=== PATIENT | female | born 1985 | race Caucasian/White ===

== ENCOUNTER 2020-06-29 16:04 | Outpatient (REF) | payer OTHER, SELFPAY ==
--- NOTE | ~2020-06-29 | XR_ITS ---
EXAMINATION: XR CHEST CLINICAL INFORMATION: Shortness of breath COMPARISON: None TECHNIQUE: 2 views of the chest were obtained. FINDINGS: The lungs are clear. There is no airspace consolidation, vascular congestion, groundglass opacity, or effusion. No pneumothorax or pneumomediastinum. The heart is normal in size. The hilar and mediastinal contours are normal. There are mild degenerative changes thoracic spine. XR/XR chest 2V IMPRESSION: Unremarkable examination.
== END 2020-06-29 16:05 | disposition home or self-care (01) ==
LOC: HO.HMGCX 16:04
PROVIDERS: PCP Nurse Practitioner Family; Visit Provider Nurse Practitioner Family
DX: R06.02 Shortness of breath (principal)
CPT/HCPCS: 71046

== ENCOUNTER 2020-07-19 16:41 | Emergency (ER) | payer OTHER, SELFPAY ==
--- NOTE | 2020-07-19 | ECG_ITS ---
Test Reason : CHEST PAIN Blood Pressure : / mmHG Vent. Rate : 070 BPM Atrial Rate : 070 BPM P-R Int : 188 ms QRS Dur : 102 ms QT Int : 428 ms P-R-T Axes : 021 053 024 degrees QTc Int : 462 ms Normal sinus rhythm with sinus arrhythmia Nonspecific ST and T wave abnormality Borderline ECG When compared with ECG of 19-JUL-2020 17:54, No significant change was found Referred By: Giovanni Gordon Electronically Signed By:RAE SHEPHERD
--- NOTE | ~2020-07-19 | XR_ITS ---
EXAMINATION: XR CHEST CLINICAL INFORMATION: History of pneumonia and cough COMPARISON: 06/29/2020 TECHNIQUE: 2 views of the chest were obtained. FINDINGS: No significant abnormality is noted involving the heart, lungs, mediastinum, bony thorax or soft tissues. XR/XR chest 2V IMPRESSION: Unremarkable examination.
--- NOTE | 2020-07-19 07:40 | ECG_ITS ---
Test Reason : CP Blood Pressure : / mmHG Vent. Rate : 065 BPM Atrial Rate : 065 BPM P-R Int : 170 ms QRS Dur : 098 ms QT Int : 418 ms P-R-T Axes : 027 064 010 degrees QTc Int : 434 ms Normal sinus rhythm Nonspecific ST and T wave abnormality Borderline ECG No previous ECGs available Referred By: Giovanni Gordon Electronically Signed By:RAE SHEPHERD
[2020-07-19 17:42] VITALS: BP 138/78; PULSE 68; RESP 16; TEMP 36.8; O2SAT 100; BMI 33.3
[2020-07-19 20:00] VITALS: BP 119/74; PULSE 67; RESP 18; TEMP 36.5; O2SAT 100
--- NOTE | 2020-07-19 21:07 | ED_ITS ---
HPI - Chest Pain General Chief Complaint: Chest Pain Stated Complaint: CHEST PAIN Time Seen by Provider: 07/19/20 21:07 Source: patient Mode of arrival: ambulatory Limitations: no limitations History of Present Illness HPI narrative: Patient recently diagnosed with pneumonia 3 weeks ago treated with antibiotics for 5 days was feeling fine until 3 days ago started coughing again with diffuse chest discomfort. Feels short little short of breath no fever no chills no leg swelling patient has not received COVID vaccine. No other family member is sick also patient complaining of mild headache. 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 Medications Medication Instructions Recorded Confirmed nitrofurantoin 1 cap PO BID 06/29/20 monohydrate/macrocrystals 100 mg capsule sucralfate 1 gram tablet 1 g PO QID 06/29/20 Previous Rx's Medication Instructions Recorded omeprazole 20 mg capsule,delayed 20 mg PO DAILY 30 Days #30 cap 02/22/20 release buspirone 7.5 mg tablet 7.5 mg PO BID #60 tab 05/29/20 levothyroxine 50 mcg tablet 50 mcg PO QAM #30 tab 05/29/20 hydroxyzine HCl 25 mg tablet 25 mg PO Q8H PRN 30 Days #90 tab 06/02/20 doxycycline monohydrate 100 mg 100 mg PO BID 10 Days #20 cap 06/29/20 capsule Allergies Allergy/AdvReac Type Severity Reaction Status Date / Time gluten Allergy Anxiety Verified 07/19/20 17:48 Review of Systems Review of Systems: Constitutional : No Weight loss, No Fever, No Chills ENT/Mouth : No sore throat, No Rhinorrhea Eyes: No Eye Pain, No Swelling Cardiovascular : No Chest Pain, no palpitations Respiratory : dry Cough, No Sputum, + shortness of breath Gastrointestinal : no Nausea, No Vomiting, No Diarrhea, No abdominal Pain, no black stools Genitourinary : No Dysuria, No Urinary Frequency Musculoskeletal : No joint pain, No Myalgias, No Joint Swelling Skin : No Skin Lesions, No rash Neuro : No Weakness, No Numbness, No Dizziness, No Headache Psych : No Anxiety/Panic, No Depression Heme/Lymph: No Bruising, No Lymphadenopathy Endocrine : No Polyuria, No Polydipsia All other systems reviewed and are negative PMFSH Past Medical History Surgical History History of section Family History Family History Father Depression Anxiety Bipolar disorder ADD (attention deficit disorder) Sister Depression Son No problems noted. Daughter No problems noted. Social History Social History Alcohol intake: never Smoking Status: Current every day smoker Tobacco Type: E-Cigarette Use of substances other than those prescribed or required for medical reasons: No Advance Directives: No Advance Directives Information Provided: Yes Patient : No Physical Exam Vital Signs: Vital Signs: Last Vital Signs Temp 97.7 F 07/19/20 20:00 Pulse 67 07/19/20 22:00 Resp 15 07/19/20 22:00 BP 104/56 L 07/19/20 22:00 Pulse Ox 100 07/19/20 22:00 Body Mass Index 33.3 Appearance: Alert. Oriented X3. No acute distress. Eyes: PERRLA, No Nystagmus ENT: Pharynx normal. Oral Mucosa moist Neck: Normal inspection. Neck supple. CVS: Normal heart rate and rhythm. Pulses normal. Respiratory: No respiratory distress. Equal air entry bilateral, no wheezing/rales/rhonchi Abdomen: Soft and nontender. Bowel sounds are present, no mass palpable, no CVA tenderness Skin: Skin warm and dry. Normal skin color. Normal skin turgor. Extremities: No lower extremity edema. No calf tenderness Neuro: Oriented X 3. No motor deficit. No sensory deficit.No cerebellar signs , cranial nerves II-XII intact MDM - Chest Pain MDM Narrative Medical decision making narrative: Patient with upper respiratory symptoms with cough chest x-ray negative white counts normal COVID negative symptoms likely from bronchitis will discharge patient home patient just finished course of dox ycycline has some postnasal drip likely allergies patient D-dimer negative for PE has the hemoglobin of 10.4 which looks like chronic secondary to heavy menstruation. Patient advised to follow-up with her PCP Lab Data Attestation: I reviewed the patient's lab results. Result diagrams: 07/19/20 21:41 07/19/20 21:41 Labs: Lab Results 07/19/20 07/19/20 07/19/20 Range/Units 21:41 21:41 21:41 WBC 4.8 (4.8-10.8) X10*3/uL RBC 4.12 L (4.20-5.50) X10*6/uL Hgb 10.4 L (12.0-16.0) g/dl Hct 32.7 L (37-47) % MCV 79.4 L (80-98) fL MCH 25.2 L (27.0-33.0) pg MCHC 31.8 (31.0-35.0) g/dl RDW 13.8 (11.0-16.0) % Plt Count 285 (160-400) X10*3/uL MPV 10.3 (9.4-12.3) fL Immature Gran % (Auto) 0.2 (0.0-0.4) % Neut % (Auto) 43.5 L (45-73) % Lymph % (Auto) 47.6 H (20-40) % [place] % (Auto) 6.2 (2-11) % Eos % (Auto) 2.1 (0-4) % Baso % (Auto) 0.4 (0-2) % Lymph # (Auto) 2.3 (1.2-4.9) X10*3/uL [place] # (Auto) 0.3 (0.1-1.2) X10*3/uL Eos # (Auto) 0.1 (0.0-0.4) X10*3/uL Baso # (Auto) 0.0 (0.0-0.2) X10*3/uL Abs Immat Gran (auto) 0.01 (0.00-0.03) X10*3/uL Absolute Neuts (auto) 2.1 (2.0-8.3) X10*3/uL Absolute Nucleated RBC 0.000 (0.0-0.012) X10*3/uL Nucleated RBC % (auto) 0.0 (0.0-0.2) /100WBC D-Dimer < 200 NG/ML Sodium 137 (135-145) mmol/L Potassium 3.7 (3.3-5.1) mmol/L Chloride 103 (96-108) mmol/L Carbon Dioxide 26 (22-29) mmol/L Anion Gap 12 (12-20) BUN 11 (9-16) mg/dL Creatinine 0.71 (0.5-1.4) mg/dL Estim Creat Clear Calc 120.7 Estimated GFR > 60 Random Glucose 97 (60-115) mg/dL Calcium 8.8 (8.4-10.2) mg/dL Urine Color Urine Appearance Urine pH (5.0-8.0) Ur Specific [place] (1.005-1.025) Urine Protein (NEG-TRACE) MG/DL Urine Glucose (UA) (NEG) MG/DL Urine Ketones (NEG) MG/DL Urine Blood (NEG) Urine Nitrite (NEG) Ur Leukocyte Esterase (NEG) Urine RBC (0) /HPF Urine WBC (0-4) /HPF Ur Squamous Epith Cells /LPF Urine Bacteria /LPF Urine Mucus /LPF COVID-19 (ROSA ISELA) (Negative) COVID-19 Clin Com 07/19/20 07/19/20 Range/Units 21:41 21:52 WBC (4.8-10.8) X10*3/uL RBC (4.20-5.50) X10*6/uL Hgb (12.0-16.0) g/dl Hct (37-47) % MCV (80-98) fL MCH (27.0-33.0) pg MCHC (31.0-35.0) g/dl RDW (11.0-16.0) % Plt Count (160-400) X10*3/uL MPV (9.4-12.3) fL Immature Gran % (Auto) (0.0-0.4) % Neut % (Auto) (45-73) % Lymph % (Auto) (20-40) % [place] % (Auto) (2-11) % Eos % (Auto) (0-4) % Baso % (Auto) (0-2) % Lymph # (Auto) (1.2-4.9) X10*3/uL [place] # (Auto) (0.1-1.2) X10*3/uL Eos # (Auto) (0.0-0.4) X10*3/uL Baso # (Auto) (0.0-0.2) X10*3/uL Abs Immat Gran (auto) (0.00-0.03) X10*3/uL Absolute Neuts (auto) (2.0-8.3) X10*3/uL Absolute Nucleated RBC (0.0-0.012) X10*3/uL Nucleated RBC % (auto) (0.0-0.2) /100WBC D-Dimer NG/ML Sodium (135-145) mmol/L Potassium (3.3-5.1) mmol/L Chloride (96-108) mmol/L Carbon Dioxide (22-29) mmol/L Anion Gap (12-20) BUN (9-16) mg/dL Creatinine (0.5-1.4) mg/dL Estim Creat Clear Calc Estimated GFR Random Glucose (60-115) mg/dL Calcium (8.4-10.2) mg/dL Urine Color YELLOW Urine Appearance CLEAR Urine pH 5.5 (5.0-8.0) Ur Specific [place] >= 1.030 H (1.005-1.025) Urine Protein TRACE (NEG-TRACE) MG/DL Urine Glucose (UA) NEG (NEG) MG/DL Urine Ketones 15 (NEG) MG/DL Urine Blood 3+ H (NEG) Urine Nitrite NEG (NEG) Ur Leukocyte Esterase NEG (NEG) Urine RBC 15-29 H (0) /HPF Urine WBC 0 (0-4) /HPF Ur Squamous Epith Cells 1+ /LPF Urine Bacteria 1+ /LPF Urine Mucus 1+ /LPF COVID-19 (ROSA ISELA) Negative (Negative) COVID-19 Clin Com See Note Discharge Plan Discharge Clinical Impression: Acute bronchitis, viral Patient Disposition: Home, Self-Care Instructions: Acute Bronchitis (ED) Additional Instructions: Use cough drops [id number]. Follow with PCP if not better Prescriptions: No Action omeprazole 20 mg capsule,delayed release(DR/EC) 20 mg PO DAILY 30 Days Qty: 30 RF: 3 levothyroxine 50 mcg tablet 50 mcg PO QAM Qty: 30 RF: 2 buspirone 7.5 mg tablet 7.5 mg PO BID Qty: 60 RF: 2 hydroxyzine HCl 25 mg tablet 25 mg PO Q8H PRN (Reason: anxiety/itching) 30 Days Qty: 90 RF: 1 nitrofurantoin monohyd/m-cryst 100 mg capsule 1 cap PO BID RF: 0 sucralfate 1 gram tablet 1 g PO QID RF: 0 doxycycline monohydrate 100 mg capsule 100 mg PO BID 10 Days Qty: 20 RF: 0
[2020-07-19 21:44] LABS: MANUAL DIFF FLAG NO
[2020-07-19 21:47] LABS: Basophils Percent Auto 0.4 % (0-2); Eosinophils Absolute Auto 0.1 X10*3/uL (0.0-0.4); Eosinophils Percent Auto 2.1 % (0-4); Hematocrit 32.7 % (37-47); Hemoglobin 10.4 g/dl (12.0-16.0); Imm Gran Abs Auto 0.01 X10*3/uL (0.00-0.03); Imm Gran Pct Auto 0.2 % (0.0-0.4); Lymphocytes Absolute Auto 2.3 X10*3/uL (1.2-4.9); Lymphocytes Percent Auto 47.6 % (20-40); Mean Corpuscular HGB Conc 31.8 g/dl (31.0-35.0); Mean Corpuscular Hemoglobin 25.2 pg (27.0-33.0); Mean Corpuscular Volume 79.4 fL (80-98); Mean Platelet Volume 10.3 fL (9.4-12.3); Monocytes Absolute Auto 0.3 X10*3/uL (0.1-1.2); Monocytes Percent Auto 6.2 % (2-11); Neutrophils Absolute Auto 2.1 X10*3/uL (2.0-8.3); Neutrophils Percent Auto 43.5 % (45-73); Platelet Count 285 X10*3/uL (160-400); Red Blood Count 4.12 X10*6/uL (4.20-5.50); Red Cell Distribution Width 13.8 % (11.0-16.0); White Blood Count 4.8 X10*3/uL (4.8-10.8)
[2020-07-19 21:58] LABS: D Dimer < 200 NG/ML
[2020-07-19 22:00] VITALS: BP 104/56; PULSE 67; RESP 15; O2SAT 100
[2020-07-19 22:01] LABS: COVID-19 Test Negative (Negative); IDNOW Serial# 9DD0AD1C
[2020-07-19 22:07] LABS: Anion Gap 12 (12-20); Blood Urea Nitrogen 11 mg/dL (9-16); Calcium 8.8 mg/dL (8.4-10.2); Carbon Dioxide 26 mmol/L (22-29); Chloride 103 mmol/L (96-108); Creatinine Clr Calc Pharmacy 120.7; Estimated Glomerular Filt Rate > 60; Glucose Random 97 mg/dL (60-115); Potassium 3.7 mmol/L (3.3-5.1); Sodium 137 mmol/L (135-145)
[2020-07-19 22:07] LABS: Glucose Urine UA NEG (NEG); Leukocyte Esterase Urine NEG (NEG); Nitrite Urine NEG (NEG); PH 5.5 (5.0-8.0); Specific Gravity - Urine >= 1.030 (1.005-1.025); Urine Blood 3+ (NEG); Urine Ketones 15 MG/DL (NEG); Urine Protein TRACE MG/DL (NEG-TRACE)
[2020-07-19 22:08] LABS: Appearance Urine CLEAR; Color Urine YELLOW
[2020-07-19 22:14] LABS: Bacteria Urine 1+ /LPF; Mucus Urine 1+ /LPF; Squamous Epithelial Cell Urine 1+ /LPF; WBC Urine 0 /HPF (0-4)
== END 2020-07-19 23:16 | disposition home or self-care (01) ==
PROVIDERS: Emergency Provider Internal Medicine; PCP Nurse Practitioner Family
DX: J20.9 Acute bronchitis, unspecified (principal); R51.9 Headache, unspecified; Z20.822 Contact with and (suspected) exposure to COVID-19; F17.290 Nicotine dependence, other tobacco product, uncomplicated
CPT/HCPCS: 36415; 71046; 80048; 81001; 85025; 85379; 87635; 93005; 99283; 99285

== ENCOUNTER 2020-09-02 14:38 | Outpatient (REF) | payer OTHER, SELFPAY ==
--- NOTE | ~2020-09-02 | XR_ITS ---
EXAMINATION: XR CHEST CLINICAL INFORMATION: Shortness of breath. COMPARISON: 07/19/20. 06/29/20. TECHNIQUE: 2 views of the chest were obtained. FINDINGS: No significant abnormality is noted involving the heart, lungs, mediastinum or soft tissues. Mild multilevel spondylosis is evident in the thoracic spine. XR/XR chest 2V IMPRESSION: Unremarkable examination.
== END 2020-09-02 14:39 | disposition home or self-care (01) ==
LOC: HO.HMGCX 14:38
PROVIDERS: PCP Nurse Practitioner Family; Visit Provider Nurse Practitioner Family
DX: R07.89 Other chest pain (principal); R06.02 Shortness of breath; R05 Cough
CPT/HCPCS: 71046

== ENCOUNTER 2020-11-23 14:06 | Emergency (ER) | payer OTHER, SELFPAY ==
[2020-11-23 14:15] VITALS: BP 137/86; PULSE 74; RESP 16; TEMP 37.1; O2SAT 100; BMI 31.4
== END 2020-11-23 19:09 | disposition left against medical advice (07) ==
PROVIDERS: Emergency Provider Emergency Medicine; PCP Nurse Practitioner Family
DX: R42 Dizziness and giddiness (principal)
CPT/HCPCS: 99282; 99283

== ENCOUNTER 2020-12-05 09:14 | Outpatient (REF) | payer OTHER, SELFPAY ==
[2020-12-05 11:30] LABS: Appearance Urine CLOUDY; Color Urine RED; Glucose Urine UA NEG (NEG); Leukocyte Esterase Urine NEG (NEG); Nitrite Urine NEG (NEG); Specific Gravity - Urine >= 1.030 (1.005-1.025); UACC Culture Trigger NO; Urine Blood 3+ (NEG); Urine Ketones 5 MG/DL (NEG); Urine Protein 2+ MG/DL (NEG-TRACE)
[2020-12-05 11:36] LABS: MANUAL DIFF FLAG NO
[2020-12-05 11:46] LABS: Basophils Percent Auto 0.8 % (0-2); Eosinophils Percent Auto 0.8 % (0-4); Hematocrit 32.8 % (37-47); Hemoglobin 9.8 g/dl (12.0-16.0); Imm Gran Abs Auto 0.01 X10*3/uL (0.00-0.03); Imm Gran Pct Auto 0.3 % (0.0-0.4); Lymphocytes Absolute Auto 1.4 X10*3/uL (1.2-4.9); Lymphocytes Percent Auto 35.9 % (20-40); Mean Corpuscular HGB Conc 29.9 g/dl (31.0-35.0); Mean Corpuscular Hemoglobin 22.4 pg (27.0-33.0); Mean Corpuscular Volume 75.1 fL (80-98); Mean Platelet Volume 10.9 fL (9.4-12.3); Monocytes Absolute Auto 0.3 X10*3/uL (0.1-1.2); Monocytes Percent Auto 6.6 % (2-11); Neutrophils Absolute Auto 2.1 X10*3/uL (2.0-8.3); Neutrophils Percent Auto 55.6 % (45-73); Platelet Count 293 X10*3/uL (160-400); Red Blood Count 4.37 X10*6/uL (4.20-5.50); Red Cell Distribution Width 15.8 % (11.0-16.0); White Blood Count 3.8 X10*3/uL (4.8-10.8)
[2020-12-05 12:14] LABS: Alanine Aminotransferase 14 U/L (0-31); Alkaline Phosphatase 41 U/L (39-117); Anion Gap 10 (12-20); Aspartate Amino Transferase 16 U/L (5-31); Bilirubin Total 0.2 mg/dL (0.0-1.0); Blood Urea Nitrogen 14 mg/dL (9-16); Calcium 8.9 mg/dL (8.4-10.2); Carbon Dioxide 23 mmol/L (22-29); Chloride 108 mmol/L (96-108); Cholesterol 191 mg/dL; Estimated Glomerular Filt Rate > 60; Glucose Fasting 104 mg/dL (60-99); HDL Cholesterol 68 mg/dL; LDL Cholesterol Calculated 111 mg/dl; Potassium 4.3 mmol/L (3.3-5.1); Sodium 137 mmol/L (135-145); Total Protein 6.9 g/dL (6.5-8.0); Triglycerides 63 mg/dL
[2020-12-05 12:19] LABS: RBC Urine TNTC /HPF (0)
[2020-12-05 12:20] LABS: Bacteria Urine TRACE /LPF; Squamous Epithelial Cell Urine 1+ /LPF; WBC Urine 0-2 /HPF (0-4)
[2020-12-05 12:21] LABS: Amorphous Sediment Urine 2+ /LPF; Calcium Oxalate Crystals Urine 1+ /LPF
== END 2020-12-05 09:15 | disposition home or self-care (01) ==
LOC: HO.HMGCLDS 09:14
PROVIDERS: PCP Nurse Practitioner Family; Visit Provider Nurse Practitioner Family
DX: Z00.00 Encounter for general adult medical examination without abnormal findings (principal); E03.9 Hypothyroidism, unspecified
CPT/HCPCS: 36415; 80053; 80061; 81001; 84443; 85025

== ENCOUNTER 2020-12-11 | Outpatient (REF) | payer OTHER, SELFPAY ==
[2020-12-12 08:36] LABS: FIT Int Ctl YES; FIT1 NEGATIVE (NEGATIVE); FIT2 NEGATIVE (NEGATIVE)
== END 2020-12-11 00:01 | disposition home or self-care (01) ==
LOC: HO.HMGCLNP
PROVIDERS: Visit Provider Nurse Practitioner Family
DX: D64.9 Anemia, unspecified (principal)
CPT/HCPCS: 82274

== ENCOUNTER 2021-01-17 13:43 | Outpatient (REF) | payer OTHER, SELFPAY ==
[2021-01-17 16:45] LABS: MANUAL DIFF FLAG NO
[2021-01-17 16:49] LABS: Basophils Percent Auto 0.8 % (0-2); Eosinophils Percent Auto 0.6 % (0-4); Hemoglobin 10.2 g/dl (12.0-16.0); Imm Gran Abs Auto 0.01 X10*3/uL (0.00-0.03); Imm Gran Pct Auto 0.2 % (0.0-0.4); Lymphocytes Absolute Auto 2.1 X10*3/uL (1.2-4.9); Lymphocytes Percent Auto 43.6 % (20-40); Mean Corpuscular HGB Conc 30.9 g/dl (31.0-35.0); Mean Corpuscular Hemoglobin 23.5 pg (27.0-33.0); Mean Platelet Volume 10.7 fL (9.4-12.3); Monocytes Absolute Auto 0.4 X10*3/uL (0.1-1.2); Monocytes Percent Auto 8.3 % (2-11); Neutrophils Absolute Auto 2.19 x10*3/uL (2.0-8.3); Neutrophils Percent Auto 46.5 % (45-73); Platelet Count 297 X10*3/uL (160-400); Red Blood Count 4.34 X10*6/uL (4.20-5.50); Red Cell Distribution Width 17.3 % (11.0-16.0); White Blood Count 4.7 X10*3/uL (4.8-10.8)
[2021-01-17 16:58] LABS: Appearance Urine CLEAR; Color Urine YELLOW; Glucose Urine UA NEG (NEG); Leukocyte Esterase Urine NEG (NEG); Nitrite Urine NEG (NEG); PH 5.5 (5.0-8.0); Specific Gravity - Urine >= 1.030 (1.005-1.025); Urine Blood NEG (NEG); Urine Ketones NEG (NEG); Urine Protein NEG (NEG-TRACE)
[2021-01-17 17:23] LABS: Vitamin D 25-OH Total 20.5 ng/mL (>30)
== END 2021-01-17 13:44 | disposition home or self-care (01) ==
LOC: HO.HMGCLDS 13:43
PROVIDERS: Visit Provider Nurse Practitioner Family
DX: Z00.00 Encounter for general adult medical examination without abnormal findings (principal); D64.9 Anemia, unspecified; E55.9 Vitamin D deficiency, unspecified
CPT/HCPCS: 36415; 81003; 82306; 84443; 85025

== ENCOUNTER 2021-01-30 09:43 | Outpatient (REF) | payer OTHER, SELFPAY ==
--- NOTE | ~2021-01-30 | XR_ITS ---
EXAMINATION: XR CHEST CLINICAL INFORMATION: Cough. COMPARISON: None TECHNIQUE: 2 views of the chest were obtained. FINDINGS: No significant abnormality is noted involving the heart, lungs, mediastinum, bony thorax or soft tissues. XR/XR chest 2V IMPRESSION: Unremarkable chest exam.
== END 2021-01-30 09:44 | disposition home or self-care (01) ==
LOC: HO.HMGCX 09:43
PROVIDERS: PCP Nurse Practitioner Family; Visit Provider Nurse Practitioner Family
DX: R07.89 Other chest pain (principal); R05.9 Cough, unspecified
CPT/HCPCS: 71046

== ENCOUNTER 2021-04-03 09:24 | Outpatient (REF) | payer OTHER, SELFPAY ==
[2021-04-03 11:26] LABS: MANUAL DIFF FLAG NO
[2021-04-03 11:29] LABS: Basophils Percent Auto 0.2 % (0-2); Eosinophils Percent Auto 0.7 % (0-4); Hematocrit 33.4 % (37.0-47.0); Hemoglobin 10.3 g/dl (12.0-16.0); Imm Gran Abs Auto 0.01 X10*3/uL (0.00-0.03); Imm Gran Pct Auto 0.2 % (0.0-0.4); Lymphocytes Absolute Auto 1.4 X10*3/uL (1.2-4.9); Lymphocytes Percent Auto 35.2 % (20-40); Mean Corpuscular HGB Conc 30.8 g/dl (31.0-35.0); Mean Corpuscular Hemoglobin 24.3 pg (27.0-33.0); Mean Platelet Volume 10.8 fL (9.4-12.3); Monocytes Absolute Auto 0.2 X10*3/uL (0.1-1.2); Monocytes Percent Auto 5.2 % (2-11); Neutrophils Absolute Auto 2.4 x10*3/uL (2.0-8.3); Neutrophils Percent Auto 58.5 % (45-73); Platelet Count 273 X10*3/uL (160-400); Red Blood Count 4.23 X10*6/uL (4.20-5.50)
[2021-04-03 12:15] LABS: Alanine Aminotransferase 11 U/L (0-31); Alkaline Phosphatase 48 U/L (39-117); Anion Gap 12 (12-20); Aspartate Amino Transferase 16 U/L (5-31); Bilirubin Total 0.3 mg/dL (0.0-1.0); Blood Urea Nitrogen 12 mg/dL (9-16); Calcium 9.1 mg/dL (8.4-10.2); Carbon Dioxide 25 mmol/L (22-29); Chloride 107 mmol/L (96-108); Estimated Glomerular Filt Rate > 60; Glucose Fasting 93 mg/dL (60-99); Potassium 4.5 mmol/L (3.3-5.1); Sodium 139 mmol/L (135-145); TSH reflex Free T4 4.67 uIU/mL (0.32-4.0); Total Protein 7.2 g/dL (6.5-8.0)
[2021-04-03 12:59] LABS: Free T4 (Free Thyroxine) 0.97 ng/dL (0.71-1.85)
== END 2021-04-03 09:25 | disposition home or self-care (01) ==
LOC: HO.HMGCLDS 09:24
PROVIDERS: Visit Provider Nurse Practitioner Family
DX: R07.89 Other chest pain (principal); R05.9 Cough, unspecified; R06.02 Shortness of breath
CPT/HCPCS: 36415; 80053; 84439; 84443; 85025

== ENCOUNTER 2021-04-06 08:12 | Outpatient (REF) | payer OTHER, SELFPAY ==
--- NOTE | 2021-04-06 | PFT_ITS ---
FLOWS: FEV1 125% of predicted at 3.94 L. FVC 114% of predicted at 4.41 L. FEV1 to FVC ratio of 0.89. No bronchodilator response. LUNG VOLUMES: Total lung capacity 96% of predicted at 5.04 L. Residual volume 41% of predicted at 0.67 L. Slow vital capacity 121% of predicted at 4.37 L. Expiratory reserve volume 140% of predicted at 1.82 L. Diffusion capacity is mildly decreased. IMPRESSION: No obstructive or restrictive ventilatory defect. No bronchodilator response. Decreased diffusion capacity suggests emphysema. Darien Ritchie MD AP/MODL / [id number]
== END 2021-04-06 08:13 | disposition home or self-care (01) ==
LOC: HO.RESP 08:12
PROVIDERS: PCP Nurse Practitioner Family; Visit Provider Nurse Practitioner Family
DX: R06.02 Shortness of breath (principal); R05.9 Cough, unspecified
CPT/HCPCS: 94060; 94727; 94729

== ENCOUNTER 2021-05-02 08:58 | Outpatient (REF) | payer OTHER, SELFPAY ==
[2021-05-02 11:34] LABS: MANUAL DIFF FLAG NO
[2021-05-02 11:43] LABS: Basophils Percent Auto 0.8 % (0-2); Eosinophils Percent Auto 0.8 % (0-4); Hemoglobin 11.6 g/dl (12.0-16.0); Imm Gran Abs Auto 0.01 X10*3/uL (0.00-0.03); Imm Gran Pct Auto 0.3 % (0.0-0.4); Lymphocytes Absolute Auto 1.5 X10*3/uL (1.2-4.9); Lymphocytes Percent Auto 38.7 % (20-40); Mean Corpuscular HGB Conc 31.4 g/dl (31.0-35.0); Mean Corpuscular Hemoglobin 25.4 pg (27.0-33.0); Mean Platelet Volume 11.1 fL (9.4-12.3); Monocytes Absolute Auto 0.3 X10*3/uL (0.1-1.2); Monocytes Percent Auto 6.3 % (2-11); Neutrophils Absolute Auto 2.1 x10*3/uL (2.0-8.3); Neutrophils Percent Auto 53.1 % (45-73); Platelet Count 314 X10*3/uL (160-400); Red Blood Count 4.57 X10*6/uL (4.20-5.50); Red Cell Distribution Width 17.4 % (11.0-16.0)
[2021-05-04 13:47] LABS: Alpha 1 Anti-trypsin 119 mg/dL (83-199)
== END 2021-05-02 08:59 | disposition home or self-care (01) ==
LOC: HO.HMGCLDS 08:58
PROVIDERS: PCP Nurse Practitioner Family; Visit Provider Nurse Practitioner Family
DX: D64.9 Anemia, unspecified (principal); R94.2 Abnormal results of pulmonary function studies
CPT/HCPCS: 36415; 82103; 85025

== ENCOUNTER 2021-05-10 12:48 | Outpatient (REF) | payer OTHER, SELFPAY ==
--- NOTE | ~2021-05-10 | CT_ITS ---
EXAMINATION: CT CHEST WITHOUT CONTRAST CLINICAL INFORMATION: Emphysema. Abnormal results of pulmonary function test. COMPARISON: Previous chest x-ray most recent 01/30/2021. TECHNIQUE: Multidetector volumetric CT imaging of the chest was done. Axial MIP volume rendering provided. Sagittal and coronal reformatted images were obtained. This CT examination was performed using dose optimization techniques as appropriate, variously including the following: *Automated exposure control. *Adjustment of mA and/or kV according to patient size (this includes techniques or standardized protocols for targeted exams where dose is matched to indication/reason for exam; i.e. extremities or head). *Use of iterative reconstruction technique. 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 LUNGS: There is a 2 mm peripheral or subpleural probably calcified right upper lobe nodule axial image 71 series 11. There is a 2 mm calcified left upper lobe nodule axial image 71 series 11. The lungs are otherwise clear. No evidence of emphysema, interstitial lung disease or bronchiectasis is seen. No endobronchial or endotracheal lesion is seen. MEDIASTINUM: The mediastinum is normal. PLEURA: There is no pleural effusion. No pleural mass or thickening. AXILLA: No lymphadenopathy. UPPER ABDOMEN: Unremarkable. OSSEOUS STRUCTURES: Degenerative changes. CT/CT chest wo con IMPRESSION: Small calcified pulmonary nodules. According to the UPDATED 2017 Fleischner Society recommendations, the advised follow-up imaging for less than 6 mm nodule: Low risk, no chest CT follow-up high-risk, optional chest CT follow-up in one year. Fleischner guidelines were followed.
== END 2021-05-10 12:49 | disposition home or self-care (01) ==
LOC: HO.CT 12:48
PROVIDERS: PCP Nurse Practitioner Family; Visit Provider Nurse Practitioner Family
DX: J43.9 Emphysema, unspecified (principal); R94.2 Abnormal results of pulmonary function studies
CPT/HCPCS: 71250

== ENCOUNTER 2021-10-12 08:38 | Outpatient (REF) | payer OTHER, SELFPAY ==
[2021-10-12 11:08] LABS: MANUAL DIFF FLAG NO
[2021-10-12 11:17] LABS: Basophils Percent Auto 0.6 % (0-2); Eosinophils Percent Auto 0.6 % (0-4); Hematocrit 34.4 % (37.0-47.0); Imm Gran Abs Auto 0.01 X10*3/uL (0.00-0.03); Imm Gran Pct Auto 0.3 % (0.0-0.4); Lymphocytes Absolute Auto 1.3 X10*3/uL (1.2-4.9); Lymphocytes Percent Auto 37.8 % (20-40); Mean Corpuscular Hemoglobin 25.2 pg (27.0-33.0); Mean Corpuscular Volume 78.9 fL (80.0-98.0); Mean Platelet Volume 11.3 fL (9.4-12.3); Monocytes Absolute Auto 0.3 X10*3/uL (0.1-1.2); Monocytes Percent Auto 9.5 % (2-11); Neutrophils Absolute Auto 1.8 x10*3/uL (2.0-8.3); Neutrophils Percent Auto 51.2 % (45-73); Platelet Count 259 X10*3/uL (160-400); Red Blood Count 4.36 X10*6/uL (4.20-5.50); White Blood Count 3.5 X10*3/uL (4.8-10.8)
[2021-10-12 11:24] LABS: Appearance Urine CLEAR; Color Urine YELLOW; Glucose Urine UA NEG (NEG); Leukocyte Esterase Urine NEG (NEG); Nitrite Urine NEG (NEG); Specific Gravity - Urine 1.025 (1.005-1.025); Urine Blood NEG (NEG); Urine Ketones NEG (NEG); Urine Protein NEG (NEG-TRACE)
[2021-10-12 11:43] LABS: Alanine Aminotransferase 10 U/L (0-31); Albumin Level 4.3 g/dL (3.5-5.0); Alkaline Phosphatase 31 U/L (39-117); Anion Gap 13 (12-20); Aspartate Amino Transferase 13 U/L (5-31); Bilirubin Total 0.3 mg/dL (0.0-1.0); Blood Urea Nitrogen 20 mg/dL (9-16); Calcium 9.1 mg/dL (8.4-10.2); Carbon Dioxide 22 mmol/L (22-29); Chloride 107 mmol/L (96-108); Cholesterol 167 mg/dL; Estimated Glomerular Filt Rate > 60; Glucose Fasting 99 mg/dL (60-99); HDL Cholesterol 58 mg/dL; LDL Cholesterol Calculated 99 mg/dl; Potassium 4.4 mmol/L (3.3-5.1); Sodium 138 mmol/L (135-145); Total Protein 7.5 g/dL (6.5-8.0); Triglycerides 51 mg/dL
[2021-10-12 12:04] LABS: TSH reflex Free T4 4.22 uIU/mL (0.32-4.0)
[2021-10-12 13:06] LABS: Free T4 (Free Thyroxine) 1.08 ng/dL (0.71-1.85)
== END 2021-10-12 08:39 | disposition home or self-care (01) ==
LOC: HO.HMGCLDS 08:38
PROVIDERS: Visit Provider Nurse Practitioner Family
DX: J06.9 Acute upper respiratory infection, unspecified (principal)
CPT/HCPCS: 36415; 80053; 80061; 81003; 84439; 84443; 85025

== ENCOUNTER 2022-01-29 09:57 | Outpatient (REF) | payer OTHER, SELFPAY ==
--- NOTE | ~2022-01-29 | XR_ITS ---
EXAMINATION: XR CHEST CLINICAL INFORMATION: Acute bronchitis COMPARISON: Previous chest x-ray and chest CT January 2021 TECHNIQUE: 2 views of the chest were obtained. FINDINGS: No significant abnormality is noted involving the heart, lungs, mediastinum, bony thorax or soft tissues. There are mild degenerative changes of the spine. XR/XR chest 2V IMPRESSION: No evidence for acute disease in the chest.
[2022-01-29 13:43] LABS: Influenza A PCR NEGATIVE (Negative); Influenza B PCR NEGATIVE (Negative); Resp Syncy Virus RNA Qual PCR NEGATIVE (Negative); SARS COV2 PCR INHOUSE NEGATIVE (Negative)
== END 2022-01-29 09:58 | disposition home or self-care (01) ==
LOC: HO.HMGCX 09:57
PROVIDERS: PCP Nurse Practitioner Family; Visit Provider Internal Medicine
DX: J20.9 Acute bronchitis, unspecified (principal); R43.9 Unspecified disturbances of smell and taste; Z20.822 Contact with and (suspected) exposure to COVID-19
CPT/HCPCS: 0241U; 71046

== ENCOUNTER 2022-09-25 11:00 | Outpatient (AMB) | payer OTHER, SELFPAY ==
[2022-09-25 11:05] VITALS: BP 110/70; PULSE 79; O2SAT 99; BMI 26.9
--- NOTE | 2022-09-25 11:05 | A.OFFPC_ITS ---
Vital Signs 09/25/22 11:05 Height 5 ft 5 in Weight 161 lb 6 oz BMI 26.9 BP 110/70 Blood Pressure Location Rt brachial Position Sitting Pulse 79 Pulse Source Pulse Oximeter Pulse Oximetry (%) 99 Oxygen Delivery Method Room Air Intake Visit Reasons: PHY Allergies gluten Allergy (Verified 09/25/22 11:08) Anxiety Tobacco use date assessed: 09/25/22 Dental Screening Dental Screen Date: 09/25/22 Did you have a dental visit in the last 12 months?: Yes Did you have a dental problem in the last 6 months where you did not have access to dental care?: No Was dental information given to patient?: Patient has dentist HPI PHY HPI Details Pt is here for a PE. Will order labs. 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 Pt is very fair-skinned with multiple freckles. Will refer to derm. Pt does have a hoarse voice. [facility] Medical History Dizziness Surgical History History of section Family History Father Depression Anxiety Bipolar disorder ADD (attention deficit disorder) Sister Depression Son No problems noted. Daughter No problems noted. Other Mental health disorder Social History Housing: House Alcohol intake: never Patient Tobacco Use Status: Former Tobacco user e-Cigarette/Vaping Use: Never Used Second Hand Smoke Exposure: No Current occupational status: employed Cognitive needs: No Hearing needs: No Vision needs: No Questionnaire Thrive Questionnaire Date Thrive assessed: 09/14/20 Review of Systems Const Denies chills and Denies fever(s) Eyes Denies blurry vision ENT Denies vertigo, Denies dizziness and Denies sore throat Card Denies chest pain at rest, Denies chest pain with activity, Denies diaphoresis, Denies dyspnea and Denies dyspnea on exertion Resp Denies cough, Denies dyspnea, Denies dyspnea on exertion and Denies wheezing GI Denies abdominal pain, Denies melena, Denies hematochezia, Denies constipation, Denies diarrhea and Denies loose stools Denies hematuria Musc Denies numbness and Denies tingling Skin/Breast Denies lesions Neuro Denies vertigo, Denies dizziness, Denies numbness and Denies tingling Psych Denies anxiety, Denies depression, Denies homicidal ideation, Denies suicidal ideation and Denies other (substance abuse) Aller/Immun Denies wheezing Physical exam (Primary Care) Vital Signs: Last Vital Signs Pulse 79 09/25/22 11:05 BP 110/70 09/25/22 11:05 Pulse Ox 99 09/25/22 11:05 Oxygen Delivery Method Room Air 09/25/22 11:05 BMI result Body Mass Index 26.9 Tobacco/Smoking Status: Tobacco use Status Tobacco use date assessed 09/25/22 09/25/22 11:11 Patient Tobacco Use Status Former Tobacco user 09/25/22 11:06 e-Cigarette/Vaping Use Never Used 09/25/22 11:06 Thrive Assessment: Date of Thrive Assessment Date Thrive assessed 09/14/20 09/25/22 11:06 Const General: cooperative Nutritional Appearance: well nourished Orientation/consciousness: patient oriented x3 HENMT Other: cervical nodes palpable, indurated, no signs of postpharyngeal abscess Head: Yes normal to inspection, Yes normocephalic and Yes atraumatic Ears: TM's normal bilaterally Eyes General: appearance normal, both eyes and all related structures Alignment and Position: alignment normal and position normal Neck Neck: Yes normal visual inspection and Yes no lymphadenopathy Thyroid: Thyroid normal Resp Effort & Inspection: normal respiratory effort Auscultation: clear to auscultation bilaterally Cardio Rate: regular rate Rhythm: regular rhythm Heart sounds: S1 normal heart sound present, S2 normal heart sound present and Murmur heart sound present systolic GI Palpation (GI): Soft to palpation and nontender Auscultation: normal bowel sounds Skin Rashes: no rashes Neuro General: patient oriented x3, moves all extremities, no focal motor deficits and deep tendon reflexes 2+ bilaterally Romberg Test: Negative Psych Appearance: grossly normal Mental Status: mental status grossly normal Speech and movement: Normal speech and movement present Affect: normal affect Attitude: cooperative Thought process: Normal thought process present Thought content: Normal thought content present Insight: Good insight present (Psych) Judgement: Good judgement present (Psych) Assessment and Plan Assessment & Plan (1) Physical exam: Code(s): Z00.00 - Encounter for general adult medical examination without abnormal findings (2) Skin lesions: Code(s): L98.9 - Disorder of the skin and subcutaneous tissue, unspecified (3) Hoarse voice quality: Code(s): R49.0 - Dysphonia Plan The patient agreed to the use of a medical logistics specialist for this encounter. Scribed for SOPHIE Pizarro by Dinora Layton medical logistics specialist, on 09/25/2022 at 11:20 EST. Orders: Orders Comprehensive Independence. Panel Fast Today Z00.00 - Encounter for general adult medical examination without abnormal findings Lipid Panel Today Z00.00 - Encounter for general adult medical examination without abnormal findings TSH reflex Free T4 Today Z00.00 - Encounter for general adult medical examination without abnormal findings Complete Blood Count Auto Diff Today Z00.00 - Encounter for general adult medical examination without abnormal findings UA CC w/rflx Micro + Cult Today Z00.00 - Encounter for general adult medical examination without abnormal findings US soft tiss head and/or neck Today R49.0 - Dysphonia Referrals Dermatology Referral L98.9 - Disorder of the skin and subcutaneous tissue, unspecified Coding Level of Care Code Est Pt Prev Care 18-39y([id number]) Diagnoses Physical exam Z00.00 Skin lesions L98.9 Hoarse voice quality R49.0
== END 2022-09-25 12:17 | disposition home or self-care (01) ==
PROVIDERS: Visit Provider Nurse Practitioner Family
DX: Z00.00 Encounter for general adult medical examination without abnormal findings (principal); L98.9 Disorder of the skin and subcutaneous tissue, unspecified; R49.0 Dysphonia
CPT/HCPCS: 99395

== ENCOUNTER 2022-12-27 09:08 | Outpatient (REF) | payer OTHER, SELFPAY ==
[2022-12-27 11:46] LABS: Appearance Urine Clear; Color Urine Yellow; Glucose Urine UA Negative (Negative); Leukocyte Esterase Urine Negative (Negative); Nitrite Urine Negative (Negative); PH 5.5 (5.0-9.0); Specific Gravity - Urine 1.025 (1.005-1.025); UMIC TRIGGER UACC YES; Urine Blood Moderate (2+) (Negative); Urine Ketones Negative (Negative); Urine Protein Negative (Neg-Trace)
[2022-12-27 11:51] LABS: Bacteria Urine None Seen (None Seen); Hyaline Casts Urine 0-2 /LPF (0-2); RBC Urine >20 /HPF (0-2); Squamous Epithelial Cell Urine 0-2 /HPF (0-2); WBC Urine 0-5 /HPF (0-5)
[2022-12-27 11:54] LABS: MANUAL DIFF FLAG NO
[2022-12-27 12:00] LABS: Basophils Percent Auto 1.4 % (0-2); Eosinophils Percent Auto 0.7 % (0-4); Hematocrit 34.5 % (37.0-47.0); Hemoglobin 10.9 g/dl (12.0-16.0); Lymphocytes Absolute Auto 1.3 X10*3/uL (1.2-4.9); Lymphocytes Percent Auto 46.8 % (20-40); Mean Corpuscular HGB Conc 31.6 g/dl (31.0-35.0); Mean Corpuscular Volume 79.1 fL (80.0-98.0); Mean Platelet Volume 10.9 fL (9.4-12.3); Monocytes Absolute Auto 0.2 X10*3/uL (0.1-1.2); Monocytes Percent Auto 7.6 % (2-11); Neutrophils Absolute Auto 1.2 x10*3/uL (2.0-8.3); Neutrophils Percent Auto 43.5 % (45-73); Platelet Count 311 X10*3/uL (160-400); Red Blood Count 4.36 X10*6/uL (4.20-5.50); Red Cell Distribution Width 14.9 % (11.0-16.0); White Blood Count 2.8 X10*3/uL (4.8-10.8)
[2022-12-27 13:07] LABS: Alanine Aminotransferase 9 U/L (0-31); Albumin Level 4.1 g/dL (3.5-5.0); Alkaline Phosphatase 37 U/L (39-117); Anion Gap 13 (12-20); Aspartate Amino Transferase 15 U/L (5-31); Bilirubin Total 0.2 mg/dL (0.0-1.0); Blood Urea Nitrogen 16 mg/dL (9-16); Calcium 9.3 mg/dL (8.4-10.2); Carbon Dioxide 23 mmol/L (22-29); Chloride 106 mmol/L (96-108); Cholesterol 206 mg/dL (<200); Estimated Glomerular Filt Rate > 60; Glucose Fasting 96 mg/dL (60-99); HDL Cholesterol 75 mg/dL (>40); LDL Cholesterol Calculated 123 mg/dL (<100); Potassium 4.7 mmol/L (3.3-5.1); Sodium 137 mmol/L (135-145); Total Protein 7.5 g/dL (6.5-8.0); Triglycerides 41 mg/dL (<150)
[2022-12-27 13:13] LABS: TSH reflex Free T4 1.87 uIU/mL (0.32-4.0)
== END 2022-12-27 09:09 | disposition home or self-care (01) ==
LOC: HO.HMGCLDS 09:08
PROVIDERS: PCP Nurse Practitioner Family; Visit Provider Nurse Practitioner Family
DX: Z00.00 Encounter for general adult medical examination without abnormal findings (principal)
CPT/HCPCS: 36415; 80053; 80061; 81001; 84443; 85025

== ENCOUNTER 2023-05-19 13:33 | Outpatient (REF) | payer OTHER, SELFPAY ==
[2023-05-19 16:03] LABS: MANUAL DIFF FLAG NO
[2023-05-19 16:14] LABS: Appearance Urine Clear; Color Urine Yellow; Glucose Urine UA Negative (Negative); Leukocyte Esterase Urine Negative (Negative); Nitrite Urine Negative (Negative); PH 5.5 (5.0-9.0); Urine Blood Negative (Negative); Urine Ketones Negative (Negative); Urine Protein Negative (Neg-Trace)
[2023-05-19 16:18] LABS: Basophils Percent Auto 0.9 % (0-2); Eosinophils Percent Auto 0.2 % (0-4); Hematocrit 35.8 % (37.0-47.0); Imm Gran Abs Auto 0.02 X10*3/uL (0.00-0.03); Imm Gran Pct Auto 0.4 % (0.0-0.4); Lymphocytes Absolute Auto 1.4 X10*3/uL (1.2-4.9); Lymphocytes Percent Auto 30.4 % (20-40); Mean Corpuscular HGB Conc 33.5 g/dl (31.0-35.0); Mean Corpuscular Hemoglobin 29.1 pg (27.0-33.0); Mean Corpuscular Volume 86.9 fL (80.0-98.0); Mean Platelet Volume 10.8 fL (9.4-12.3); Monocytes Absolute Auto 0.3 X10*3/uL (0.1-1.2); Monocytes Percent Auto 6.7 % (2-11); Neutrophils Absolute Auto 2.9 x10*3/uL (2.0-8.3); Neutrophils Percent Auto 61.4 % (45-73); Platelet Count 252 X10*3/uL (160-400); Red Blood Count 4.12 X10*6/uL (4.20-5.50); Red Cell Distribution Width 12.6 % (11.0-16.0); White Blood Count 4.6 X10*3/uL (4.8-10.8)
[2023-05-19 16:33] LABS: Iron 51 mcg/dL (30-160); Percent Iron Saturation 16 % (15-50); Total Iron Binding Capacity 318 mcg/dL (228-428); Unsaturated Iron Binding 267 ug/dL
[2023-05-19 16:49] LABS: Ferritin 24 ng/mL (10-122)
== END 2023-05-19 13:34 | disposition home or self-care (01) ==
LOC: HO.HMGCLDS 13:33
PROVIDERS: PCP Nurse Practitioner Family; Visit Provider Nurse Practitioner Family
DX: Z00.00 Encounter for general adult medical examination without abnormal findings (principal); D64.9 Anemia, unspecified; D72.819 Decreased white blood cell count, unspecified
CPT/HCPCS: 36415; 81003; 82728; 83540; 85025

== ENCOUNTER 2023-05-26 11:33 | Outpatient (AMB) | payer OTHER, SELFPAY ==
--- NOTE | 2023-05-26 11:35 | A.OFFPC_ITS ---
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 Required: No Accompanied by: Self / Same As Patient Allergies gluten Allergy (Verified 05/26/23 11:36) Anxiety Medication List - Last Reconciled 05/26/23 by SOPHIE Barragan albuterol sulfate 90 mcg/actuation (ProAir HFA) 2 puffs inhalation Q4-6H PRN buspirone 15 mg PO BID ferrous sulfate (Iron (ferrous sulfate)) 325 mg PO BID levothyroxine 50 mcg PO QAM lorazepam 0.5 mg PO DAILY PRN 30 days omeprazole 20 mg PO DAILY 30 days sucralfate 1 g PO QID Tobacco use date assessed: 05/26/23 Dental Screening Dental Screen Date: 05/26/23 Did you have a dental visit in the last 12 months?: Yes Did you have a dental problem in the last 6 months where you did not have access to dental care?: No Was dental information given to patient?: Patient has dentist HPI anemia and anxiety HPI Details Anxiety: Pt is currently taking buspirone 15mg bid. She reports recently witnessing a coworker have a grand mal seizure which was traumatic for her. She is interested in seeing a therapist, will have team speak with pt.Denies any SI and HI. Anemia: Pt is taking iron tabs. She reports doing well with this med, and H+H is climbing up. Denies fatigue, dizziness, CP, SOB, and blood in stool. Pt reports palpitations especially at night. Will order holter r/o any cardiac arrhythmia. Systolic murmur, last echo was 2018, will repeat. [facility] Medical History Dizziness Surgical History History of section Family History Father Depression Anxiety Bipolar disorder ADD (attention deficit disorder) Sister Depression Son No problems noted. Daughter No problems noted. Other Mental health disorder Social History Housing: House Alcohol intake: never Patient Tobacco Use Status: Former Tobacco user e-Cigarette/Vaping Use: Never Used Second Hand Smoke Exposure: No Current occupational status: employed Cognitive needs: No Hearing needs: No Vision needs: No Questionnaire Thrive Questionnaire Date Thrive assessed: 09/14/20 Review of Systems Const Reports as per [facility] Physical exam (Primary Care) Vital Signs: Last Vital Signs Pulse 66 05/26/23 11:36 BP 120/66 05/26/23 11:36 Pulse Ox 98 05/26/23 11:36 BMI result Body Mass Index 27.3 Tobacco/Smoking Status: Tobacco use Status Tobacco use date assessed 05/26/23 05/26/23 11:37 Patient Tobacco Use Status Former Tobacco user 05/26/23 11:37 e-Cigarette/Vaping Use Never Used 05/26/23 11:37 Thrive Assessment: Date of Thrive Assessment Date Thrive assessed 09/14/20 05/26/23 11:37 Const General: cooperative Orientation/consciousness: patient oriented x3 Resp Effort & Inspection: normal respiratory effort Auscultation: clear to auscultation bilaterally Cardio Rate: regular rate Rhythm: regular rhythm Heart sounds: S1 normal heart sound present, S2 normal heart sound present and Murmur heart sound present systolic Neuro General: patient oriented x3 Extrem Right lower extremity: no edema Left lower extremity: no edema Psych Appearance: grossly normal Mental Status: mental status grossly normal Speech and movement: Normal speech and movement present Affect: normal affect Attitude: cooperative Thought process: Normal thought process present Thought content: Normal thought content present Insight: Good insight present (Psych) Judgement: Good judgement present (Psych) Assessment and Plan Assessment & Plan (1) Systolic murmur: Code(s): R01.1 - Cardiac murmur, unspecified Plan: Echo ordered (2) Palpitations: Code(s): R00.2 - Palpitations Plan: Holter ordered, echo ordered for murmur (3) Anxiety: Code(s): F41.9 - Anxiety disorder, unspecified Plan: will have team speak with pt. pt is doing fair, saw a traumatic event, requesting therapist. denies any si or hi, continue current med regime (4) Depression: Code(s): F32.A - Depression, unspecified (5) Anemia: Code(s): D64.9 - Anemia, unspecified Plan The patient agreed to the use of a back office medical assistant for this encounter. Scribed for [facility] by Dinora Layton back office medical assistant, on 05/26/2023 at 11:50 EST. Orders: Orders CA echo transthoracic complete Today R01.1 - Cardiac murmur, unspecified ECG 3 day holter monitor Today R00.2 - Palpitations Complete Blood Count Auto Diff 6 Months Z00.00 - Encounter for general adult medical examination without abnormal findings TSH reflex Free T4 6 Months Z00.00 - Encounter for general adult medical examination without abnormal findings IRON PROFILE 6 Months D64.9 - Anemia, unspecified Vitamin B12 and Folate 6 Months D64.9 - Anemia, unspecified Comprehensive Humphrey. Panel Fast 6 Months Z00.00 - Encounter for general adult medical examination without abnormal findings UA CC w/rflx Micro + Cult 6 Months Z00.00 - Encounter for general adult medical examination without abnormal findings Lipid Panel 6 Months Z00.00 - Encounter for general adult medical examination without abnormal findings Ferritin 6 Months D64.9 - Anemia, unspecified Medications: Refilled levothyroxine 50 mcg PO QAM 90 tabs 1RF lorazepam 0.5 mg PO DAILY PRN 30 tabs 1RF anxiety 30 days Coding Level of Care Code Est Pt Level 3 (80948) Diagnoses Systolic murmur R01.1 Palpitations R00.2 Anxiety F41.9 Depression F32.A Anemia D64.9
[2023-05-26 11:36] VITALS: BP 120/66; PULSE 66; O2SAT 98; BMI 27.3
== END 2023-05-26 12:34 | disposition home or self-care (01) ==
PROVIDERS: PCP Nurse Practitioner Family; Visit Provider Nurse Practitioner Family
DX: R01.1 Cardiac murmur, unspecified (principal); R00.2 Palpitations; F41.9 Anxiety disorder, unspecified; F32.A Depression, unspecified; D64.9 Anemia, unspecified
CPT/HCPCS: 99213

== ENCOUNTER → 2023-06-18 14:09 | Outpatient (REF) | payer OTHER, SELFPAY ==
--- NOTE | 2023-06-18 14:12 | HM_ITS ---
* Total monitoring time 3 days. * Underlying rhythm is sinus with an average rate of 72/Min. * Rare ventricular ectopy with minimal burden. 2 short runs, longest 5 beats. * Rare supraventricular ectopy. * No significant pauses or AV blocks. * Patient markers used in association with sinus rhythm, sinus tachycardia, NSVT. * Chest discomfort, rapid/fast heartbeat in patient diary associated with sinus rhythm/artifact. MTDD
--- NOTE | 2023-06-18 14:12 | CA_ITS ---
Transthoracic Echocardiogram Patient (Last, First, Middle): Abigail Dudley, Gender: Female Date of : 1985 Age: 37 Procedure Date: 06/18/2023 Procedure Type: Transthoracic Echocardiogram Location: OP Height: 165.1 cm Weight: 74.39 kg BSA: 1.82 m2 Heart Rate: 66 bpm BP: 118 / 62 mmHg All Source Analyst: SB Referring MD: Gee Doyle [facility] Trimmer Climber: Fabio Hurst MD Symptoms: R01.1 - Cardiac murmur, unspecified Study Quality: Adequate ECG Rhythm: Sinus Conclusions: - Essentially normal study Findings Left Ventricle Normal left ventricular size, thickness, and systolic function. The visually estimated ejection fraction is between 60-65%. Diastolic function is normal for age. Right Ventricle Normal right ventricular cavity size and systolic function. Atria Both atria are normal in size. There is no evidence of interatrial shunt. Aortic Valve Normal aortic valve structure and function. There is no aortic valve stenosis. There is no aortic valve regurgitation. Mitral Valve Normal mitral valve structure and function. There is trace mitral valve regurgitation. There is no mitral valve stenosis. Pulmonic Valve The pulmonic valve is likely normal. Tricuspid Valve Normal tricuspid valve structure. There is trace tricuspid valve regurgitation. The right ventricular systolic pressure is normal. The right ventricular systolic pressure is 14 mmHg. Normal right atrial pressure. There is no evidence of pulmonary hypertension. Great Vessels All visible segments of the aorta are normal in size. The visualized portions of the pulmonary artery and branches are normal. Venous The inferior vena cava is normal in size and collapses greater than 50% with inspiration. Pericardium/Pleural There is no evidence of pericardial effusion. Prior Study Comparison No significant change compared to prior study dated: 11/18/2017. Measurements 2D Linear Measurements IVSd: 0.62 0.6-0.9/0.6-1.0 cm LVIDd: 4.89 3.9-5.3/4.2-5.9 cm LVIDd Index: 2.69 2.4-3.2/2.2-3.1 cm/m2 LVIDs: 3.22 2.0-3.6 cm LVPWd: 0.80 0.7-1.1 cm LA Diam: 3.50 2.7-3.8/3.0-4.0 cm LAIDs Index: 1.92 1.5-2.3 cm/m2 LV Mass: 139.68 67-162/88-224 g LV Mass Index: 76.75 43-95/49-115 g/m2 LVOT Diam: 2.10 3.0+(-)1.3 cm 2D Systolic Function EF 4C: 64.20 >55% EF 2C: 63.70 >55% EF BiP: 64.40 >55% Mitral Valve MV Pk E: 0.96 MV PK A: 0.66 MV Decel Time: 149.00 E/A: 1.40 E'Lateral: 10.80 E'Medial: 8.49 E/E' Med: 11.20 E/E' Lat: 8.80 PHT: 44.00 MVA PHT: 5.00 Decel [place]: 6.40 Aortic Valve AoV Pk Venancio: 1.24 AoV Pk Grad: 6.00 MATTI: 3.21 LVOT LVOT Pk Venancio: 1.15 LVOT Mn Venancio: 0.79 LVOT VTI: 0.23 LVOT Pk Grad: 5.00 LVOT Mn Grad: 3.00 LVOT Diam: 2.10 LVOT Area: 3.46 Diastolic Function MV Pk E: 0.96 MV Pk A: 0.66 E/A: 1.40 E'Medial: 8.49 E/E' Med: 11.20 E' Laterial: 10.80 E/E' Lat: 8.80 Right Ventricle TAPSE (mm): 25.40 TVS' Venancio: 13.40 Tricuspid Valve TR Pk Venancio: 1.66 TR Pk Grad: 11.00 RA Press: 3.00 RVSP: 14.00 Great Vessels Aorta Sinus of Valsalva: 2.90 2.0-3.5 cm Ao Asc: 3.10 2.1-3.4 cm Pulmonary Veins Pulm Vein S/D 1.20 Pulmonary Valve PV Pk Venancio: 0.92 Peak PV Grad: 3.00 Updated in Other Vendor System with Status of Final Fabio Hurst MD electronically signed on 06/19/2023 12:12:56 PM with status of Final
== END ==
LOC: HO.CARD 14:09
PROVIDERS: PCP Nurse Practitioner Family; Visit Provider Nurse Practitioner Family
DX: R00.2 Palpitations (principal); R01.1 Cardiac murmur, unspecified
CPT/HCPCS: 93242; 93306

== ENCOUNTER → 2023-06-18 14:12 | Outpatient (BNV) | payer OTHER, SELFPAY | PROVIDERS: PCP Nurse Practitioner Family; Visit Provider Internal Medicine Cardiovascular Disease | DX: I49.3 Ventricular premature depolarization (principal) | CPT/HCPCS: 93244; 93306 ==

== ENCOUNTER 2023-11-05 11:49 | Emergency (ER) | payer OTHER, SELFPAY ==
--- NOTE | ~2023-11-05 | US_ITS ---
EXAMINATION: US ABDOMEN LIMITED CLINICAL INFORMATION: Right upper quadrant pain after eating. COMPARISON: None available. TECHNIQUE: Real-time imaging of the right upper quadrant abdominal viscera. FINDINGS: PANCREAS: The head is slightly obscured but the tail and body of the pancreas appear normal. The pancreatic duct however does appear slightly conspicuous at 2 mm although I do not see an intrinsic calcification. LIVER: Normal. The liver is normal in size. The liver contour is normal. Parenchymal echogenicity is normal. No focal hepatic lesion. There is no intrahepatic biliary duct dilatation seen. GALLBLADDER: Specular reflectors are seen in the gallbladder wall but discrete gallstones are not seen. There may be a small element of sludge within the gallbladder when the patient was placed in the decubitus position. No evidence for gallbladder wall thickening or pericholecystic fluid. COMMON BILE DUCT: Normal in caliber measuring 0.6 cm in diameter. RIGHT KIDNEY: Normal. No hydronephrosis. No renal calculi or focal parenchymal lesions. The kidney measures 11.7 cm in maximum dimension. FREE FLUID: None. US/US abdomen limited IMPRESSION: Small amount of gallbladder sludge. No biliary dilatation. Increased conspicuity or prominence to the pancreatic duct is observed, likely not clinically significant. Given the patient's symptoms however, consideration could be given to HIDA scan. Electronically signed by: Venkatesh Roche MD 11/05/2023 05:21 PM EDT
[2023-11-05 12:12] VITALS: BP 146/78; PULSE 75; RESP 18; TEMP 36.8; O2SAT 100; BMI 26.8
--- NOTE | 2023-11-05 12:14 | ED.GENADULT ---
HPI - General Adult General Chief complaint: Abdominal Pain Stated complaint: abd pain Time Seen by Provider: 11/05/23 22:12 Source: patient Mode of arrival: ambulatory Limitations: no limitations History of Present Illness ED Provider: Dr. Araya HPI narrative: Patient with one month of intermittent RUQ pain with eating. She states the pain has been getting worse, and more frequent. Onset (ago): month(s) Location: abdomen Radiation: non-radiation Severity: mild Related Data Home Medications ?Medication ?Instructions ?Recorded ?Confirmed sucralfate 1 gram tablet 1 g PO QID 06/29/20 05/26/23 Previous Rx's ?Medication ?Instructions ?Recorded albuterol sulfate 90 mcg/actuation 2 puff inhalation Q4-6H PRN 09/02/20 aerosol inhaler (ProAir HFA) shortness of breath or wheezing #6.7 grams omeprazole 20 mg capsule,delayed 20 mg PO DAILY 30 days #30 caps 08/16/21 release buspirone 15 mg tablet 15 mg PO BID #180 tabs 11/07/22 levothyroxine 50 mcg tablet 50 mcg PO QAM #90 tabs 05/26/23 ferrous sulfate 325 mg (65 mg 325 mg PO BID #180 tabs 08/26/23 iron) tablet (Iron (ferrous sulfate)) lorazepam 0.5 mg tablet 0.5 mg PO DAILY PRN anxiety 30 10/02/23 days #30 tabs pantoprazole 40 mg tablet,delayed 40 mg PO DAILY #30 tabs 11/05/23 release (Protonix) Allergies Allergy/AdvReac Type Severity Reaction Status Date / Time gluten Allergy Anxiety Verified 11/05/23 12:14 Review of Systems Review of Systems: Yes all other systems are reviewed and are negative Neurologic: Denies Sensory deficit (Neuro) [facility] Past Medical History Medical History Dizziness Surgical History History of section Family History Family History Father Depression Anxiety Bipolar disorder ADD (attention deficit disorder) Sister Depression Son No problems noted. Daughter No problems noted. Other Mental health disorder Social History Social History Housing: House Alcohol intake: never Patient Tobacco Use Status: Former Tobacco user e-Cigarette/Vaping Use: Never Used Second Hand Smoke Exposure: No Advance Directives: No Advance Directives Information Provided: No Do you have a plan to hurt others: No Plan Current occupational status: employed Cognitive needs: No Hearing needs: No Vision needs: No Physical Exam ED Vital Signs: Vital Signs - 24 hr 11/05/23 12:12 11/05/23 17:07 11/05/23 22:06 Temperature 98.3 F 98.2 F 97.9 F Pulse Rate 75 65 70 Respiratory Rate 18 20 17 Blood Pressure 146/78 H 131/81 121/77 Pulse Oximetry 100 100 99 Oxygen Delivery Method Room Air Room Air Room Air BMI result Body Mass Index 26.8 Const General: healthy appearing Nutritional Appearance: average body habitus Orientation/consciousness: oriented to person and patient oriented x3 Limitations: no limitations HENMT Head: Yes normal to inspection Ears: external ears normal General nose exam: Normal external nose present Mouth: Normal oral and palatal mucosa present and oropharynx normal Throat: Yes posterior oropharynx normal Eyes General: appearance normal, both eyes and all related structures Neck Neck: Yes normal visual inspection Chest Chest palpation & inspection: normal inspection of the chest Resp Auscultation: clear to auscultation bilaterally Cardio Jugular venous distension: no JVD Rate: regular rate Rhythm: regular rhythm Heart sounds: S1 normal heart sound present and S2 normal heart sound present GI Inspection: Yes normal to inspection Palpation (GI): Soft to palpation, nontender and No hepatosplenomegaly present Auscultation: normal bowel sounds General: Yes no CVA tenderness Back/Spine/Pelvis Back: no CVA tenderness Skin General skin exam: no rashes or lesions noted Neuro General: oriented to person and patient oriented x3 Cranial nerves: Yes CN's II-XII intact bilaterally Motor exam (neuro): 5/5 motor strength present throughout Sensory Exam: No Sensory deficit (Neuro) Extrem General: Yes normal to inspection Psych Appearance: grossly normal Course Course Course Narrative: RME, this is a rapid medical exam performed by Mac Reagan please refer to primary provider for complete H&P- [age] old female presents for evaluation of right upper quadrant abdominal pain. She has previously had the pain on and off every few weeks but over the last couple of days the pain has been much more frequent and she is not getting stabbing pains every 10 minutes. Plan for labs and right upper quadrant ultrasound Reevaluation(s) Reevaluation #1: patient give a good history of intermittent biliary colic, physical exam normal, labs normal, CT shows gallstone vs sludge, Will refer outpatient to Dr. Mercado Time: 22:28 Medical Decision Making Differential Diagnosis Differential Diagnoses: The differential diagnosis associated with the presentation includes (gastritis, cholecystitis, ascending cholangitis, biliary colic, ulcers) Admission/Observation Consideration of admission/observation: Escalation of care including admission/observation considered (upon arrival patient considered for admission) Lab Data MDM Lab Attestation statement: I reviewed the patient's lab results. 11/05/23 13:11 11/05/23 13:11 Labs: Lab Results 11/05/23 Range/Units 13:11 WBC 4.5 L (4.8-10.8) X10*3/uL RBC 4.23 (4.20-5.50) X10*6/uL Hgb 12.7 (12.0-16.0) g/dl Hct 37.2 (37.0-47.0) % MCV 87.9 (80.0-98.0) fL MCH 30.0 (27.0-33.0) pg MCHC 34.1 (31.0-35.0) g/dl RDW 12.0 (11.0-16.0) % Plt Count 265 (160-400) X10*3/uL MPV 9.8 (9.4-12.3) fL Immature Gran % (Auto) 0.2 (0.0-0.4) % Neut % (Auto) 66.8 (45-73) % Lymph % (Auto) 25.9 (20-40) % [place] % (Auto) 5.8 (2-11) % Eos % (Auto) 0.4 (0-4) % Baso % (Auto) 0.9 (0-2) % Lymph # (Auto) 1.2 (1.2-4.9) X10*3/uL [place] # (Auto) 0.3 (0.1-1.2) X10*3/uL Eos # (Auto) 0.0 (0.0-0.4) X10*3/uL Baso # (Auto) 0.0 (0.0-0.2) X10*3/uL Abs Immat Gran (auto) 0.01 (0.00-0.03) X10*3/uL Absolute Neuts (auto) 3.0 (2.0-8.3) x10*3/uL Absolute Nucleated RBC 0.000 (0.0-0.012) X10*3/uL Nucleated RBC % (auto) 0.0 (0.0-0.2) /100WBC Sodium 139 (135-145) mmol/L Potassium 4.2 (3.3-5.1) mmol/L Chloride 106 (96-108) mmol/L Carbon Dioxide 26 (22-29) mmol/L Anion Gap 11 L (12-20) BUN 17 H (9-16) mg/dL Creatinine 0.67 (0.5-1.4) mg/dL Estim Creat Clear Calc 112.6 Estimated GFR > 60 Random Glucose 96 (60-115) mg/dL Calcium 9.5 (8.4-10.2) mg/dL Total Bilirubin 0.3 (0.0-1.0) mg/dL AST 15 (5-31) U/L ALT 13 (0-31) U/L Alkaline Phosphatase 41 (39-117) U/L Total Protein 7.6 (6.5-8.0) g/dL Albumin 4.3 (3.5-5.0) g/dL Lipase 20 (8-78) U/L Urine Color Yellow Urine Appearance Clear Urine pH 5.5 (5.0-9.0) Ur Specific [place] 1.025 (1.005-1.025) Urine Protein Negative (Neg-Trace) mg/dL Urine Glucose (UA) Negative (Negative) mg/dL Urine Ketones Negative (Negative) mg/dL Urine Blood Moderate (2+) H (Negative) Urine Nitrite Negative (Negative) Ur Leukocyte Esterase Negative (Negative) Urine RBC 11-20 H (0-2) /HPF Urine WBC 0-5 (0-5) /HPF Ur Squamous Epith Cells 0-2 (0-2) /HPF Urine Bacteria None Seen (None Seen) Hyaline Casts 0-2 (0-2) /LPF Independent Interpretation I performed an independent interpretation of an: Ultrasound (my reading is gallstone and sludge) Radiology Impression Discussion of test interpretation with radiology: I have reviewed the radiologist's reading. (radiology reading is sludge only) Tests considered The following testing was considered but not selected: CT of abd considered but US is the better study Prescription Management I considered prescription management with: Antibiotic (no evidence of infection) Discharge Plan Discharge Clinical Impression: Biliary colic Patient Disposition: Home, Self-Care Instructions: Biliary Colic (ED) Prescriptions: New pantoprazole [Protonix] 40 mg tablet,delayed release (DR/EC) 40 mg PO DAILY Qty: 30 0RF No Action omeprazole 20 mg capsule,delayed release(DR/EC) 20 mg PO DAILY 30 Days Qty: 30 3RF buspirone 15 mg tablet 15 mg PO BID Qty: 180 1RF ferrous sulfate [Iron (ferrous sulfate)] 325 mg (65 mg iron) tablet 325 mg PO BID Qty: 180 1RF lorazepam 0.5 mg tablet 0.5 mg PO DAILY PRN (Reason: anxiety) 30 Days Qty: 30 1RF sucralfate 1 gram tablet 1 g PO QID albuterol sulfate [ProAir HFA] 90 mcg/actuation HFA aerosol inhaler 2 puff inhalation Q4-6H PRN (Reason: shortness of breath or wheezing) Qty: 6.7 0RF levothyroxine 50 mcg tablet 50 mcg PO QAM Qty: 90 1RF Referrals: Gee Doyle FNP-[facility] [Primary Care Provider] - 1 week Gee Mercado MD [Physician] - 5 days Print Language: Macedonian
[2023-11-05 13:17] LABS: MANUAL DIFF FLAG NO
[2023-11-05 13:18] LABS: Basophils Percent Auto 0.9 % (0-2); Eosinophils Percent Auto 0.4 % (0-4); Hematocrit 37.2 % (37.0-47.0); Hemoglobin 12.7 g/dl (12.0-16.0); Imm Gran Abs Auto 0.01 X10*3/uL (0.00-0.03); Imm Gran Pct Auto 0.2 % (0.0-0.4); Lymphocytes Absolute Auto 1.2 X10*3/uL (1.2-4.9); Lymphocytes Percent Auto 25.9 % (20-40); Mean Corpuscular HGB Conc 34.1 g/dl (31.0-35.0); Mean Corpuscular Volume 87.9 fL (80.0-98.0); Mean Platelet Volume 9.8 fL (9.4-12.3); Monocytes Absolute Auto 0.3 X10*3/uL (0.1-1.2); Monocytes Percent Auto 5.8 % (2-11); Neutrophils Percent Auto 66.8 % (45-73); Platelet Count 265 X10*3/uL (160-400); Red Blood Count 4.23 X10*6/uL (4.20-5.50); White Blood Count 4.5 X10*3/uL (4.8-10.8)
[2023-11-05 13:20] LABS: Appearance Urine Clear; Color Urine Yellow; Glucose Urine UA Negative (Negative); Leukocyte Esterase Urine Negative (Negative); Nitrite Urine Negative (Negative); PH 5.5 (5.0-9.0); Specific Gravity - Urine 1.025 (1.005-1.025); UMIC TRIGGER UACC YES; Urine Blood Moderate (2+) (Negative); Urine Ketones Negative (Negative); Urine Protein Negative (Neg-Trace)
[2023-11-05 13:22] LABS: Bacteria Urine None Seen (None Seen); Hyaline Casts Urine 0-2 /LPF (0-2); Squamous Epithelial Cell Urine 0-2 /HPF (0-2); WBC Urine 0-5 /HPF (0-5)
[2023-11-05 13:40] LABS: Alanine Aminotransferase 13 U/L (0-31); Albumin Level 4.3 g/dL (3.5-5.0); Alkaline Phosphatase 41 U/L (39-117); Anion Gap 11 (12-20); Aspartate Amino Transferase 15 U/L (5-31); Bilirubin Total 0.3 mg/dL (0.0-1.0); Blood Urea Nitrogen 17 mg/dL (9-16); Calcium 9.5 mg/dL (8.4-10.2); Carbon Dioxide 26 mmol/L (22-29); Chloride 106 mmol/L (96-108); Creatinine Clr Calc Pharmacy 112.6; Estimated Glomerular Filt Rate > 60; Glucose Random 96 mg/dL (60-115); Lipase 20 U/L (8-78); Potassium 4.2 mmol/L (3.3-5.1); Sodium 139 mmol/L (135-145); Total Protein 7.6 g/dL (6.5-8.0)
[2023-11-05 17:07] VITALS: BP 131/81; PULSE 65; RESP 20; TEMP 36.8; O2SAT 100
[2023-11-05 22:06] VITALS: BP 121/77; PULSE 70; RESP 17; TEMP 36.6; O2SAT 99
[2023-11-06 07:06] VITALS: BP 121/77; PULSE 70; RESP 17; TEMP 36.6; O2SAT 99
== END 2023-11-05 22:40 | disposition home or self-care (01) ==
PROVIDERS: Physician Assistant; Emergency Provider Emergency Medicine; PCP Nurse Practitioner Family
DX: K80.50 Calculus of bile duct without cholangitis or cholecystitis without obstruction (principal); R10.11 Right upper quadrant pain
CPT/HCPCS: 36415; 76705; 80053; 81001; 83690; 85025; 99284

== ENCOUNTER 2023-11-11 15:55 | Outpatient (AMB) | payer OTHER, SELFPAY ==
--- NOTE | 2023-11-11 15:56 | AM.OFFWIN_ITS ---
Intake Vital Signs 11/11/23 15:57 Height 5 ft 5.5 in Weight 160 lb BMI 26.2 BP 134/82 Blood Pressure Location Rt brachial Position Sitting Pulse 66 Pulse Source Pulse Oximeter Temp 98.5 F Temp Source Oral Pulse Oximetry (%) 98 Oxygen Delivery Method Room Air Intake Visit Reasons: EP pain in upper stomach, uti? lung pain Intake Note: pt c/o upper abdominal pain, urinary frequency and discomfort. Lung pain. Started 2 weeks ago. Seen at ER. Said she has sludge in gall bladder. Cannot eat Patient Tobacco Use Status: Former Tobacco user Allergies gluten Allergy (Verified 11/11/23 15:57) Anxiety Do you need a note to return to daycare/school/sports/work: Yes HPI HPI Comments History of Present Illness Details Patient is a 38-year-old female with several complaints. Her 1st complaint is she thinks she has a urinary tract infection, she has had a few days of lower abdominal pain and burning when she urinates. She denies low back pain, fevers or blood in her urine. Her 2nd complaint is she was evaluated in the ER 5 days ago at [facility] was told she had sludge in her gallbladder and was told to follow up with General surgery. She states that the pain in her upper abdomen is getting worse and she is now unable to eat. She is able to drink and states she is alternating electrolytes with water. She states she did not follow up with General surgery or her primary care doctor yet. [facility] Medical History Dizziness Surgical History History of section Family History Father Depression Anxiety Bipolar disorder ADD (attention deficit disorder) Sister Depression Son No problems noted. Daughter No problems noted. Other Mental health disorder Social History Housing: House Alcohol intake: never Patient Tobacco Use Status: Former Tobacco user e-Cigarette/Vaping Use: Never Used Second Hand Smoke Exposure: No Current occupational status: employed Cognitive needs: No Hearing needs: No Vision needs: No Review of Systems Const All systems reviewed & are unremarkable except as noted in HPI and below Physical Exam Vital Signs: Last Vital Signs Temp 98.5 F 11/11/23 15:57 Pulse 66 11/11/23 15:57 BP 134/82 11/11/23 15:57 Pulse Ox 98 11/11/23 15:57 Oxygen Delivery Method Room Air 11/11/23 15:57 BMI result Body Mass Index 26.2 Const General: cooperative, healthy appearing, comfortable, no acute distress and well developed Orientation/consciousness: patient oriented x3 Limitations: no limitations HEENT Head: Yes normal to inspection Ears: hearing grossly normal bilaterally General nose exam: Normal external nose present Face and sinus: Yes normal facial exam Eyes General: appearance normal, both eyes and all related structures Neck Neck: Yes normal visual inspection and Yes full ROM Resp Effort & Inspection: normal respiratory effort and able to speak in complete sentences Skin General skin exam: no rashes or lesions noted Neuro General: patient oriented x3 Extrem General: Yes normal to inspection Results AMB Urinalysis, Automated UA Leukoctes 500 Lobito/uL Last Edit by Braxton Hull CMA on 11/11/23 16:09 UA Nitrite Negative Last Edit by Braxton Hull CMA on 11/11/23 16:09 UA Urobilinogen 0.2 mg/dL Last Edit by Braxton Hull CMA on 11/11/23 16:09 UA Protein 15 mg/dL Last Edit by Braxton Hull CMA on 11/11/23 16:09 UA pH 6.0 Last Edit by Braxton Hull CMA on 11/11/23 16:09 UA Blood 200 Adalid/uL Last Edit by Braxton Hull CMA on 11/11/23 16:09 UA Specific Fisk 1.020 Last Edit by Braxton Hull CMA on 11/11/23 16:09 UA Ketone Positive Last Edit by Braxton Hull CMA on 11/11/23 16:09 UA Bilirubin 0 mg/dL Last Edit by Braxton Hull CMA on 11/11/23 16:09 UA Glucose 0 mg/dL Last Edit by Braxton Hull CMA on 11/11/23 16:09 Results Reviewed Results Reviewed: Laboratory Last Values Urine pH (Auto) 6.0 11/11/23 16:08 Specific Fisk (Auto) 1.020 11/11/23 16:08 Urine Protein (Auto) 15 mg/dL 11/11/23 16:08 Glucose (UA)(Auto) 0 mg/dL 11/11/23 16:08 Urine Ketones (Auto) Positive 11/11/23 16:08 Urine Blood (Auto) 200 Adalid/uL 11/11/23 16:08 Urine Nitrite (Auto) Negative 11/11/23 16:08 Urine Bilirubin (Auto) 0 mg/dL 11/11/23 16:08 Urine Urobilinogen (Auto) 0.2 mg/dL 11/11/23 16:08 Leukocyte Esterase (Auto) 500 Lobito/uL 11/11/23 16:08 Assessment & Plan Assessment & Plan (1) UTI (urinary tract infection): Code(s): N39.0 - Urinary tract infection, site not specified Plan: UA positive for leukocyte esterase, blood and ketones. Sent for culture. Vital signs are stable, patient is well-appearing. Recommended patient follow up with General surgery in the morning and reach out her PCP via the portal. If the pain is intolerable, she should go to the emergency department. Recommended she stay well hydrated. Plan See above Orders: Orders AMB Urinalysis Automated Today Z13.9 - Encounter for screening, unspecified Urine Culture Today N39.0 - Urinary tract infection, site not specified Medications: New cefuroxime axetil 500 mg PO Q12H 10 tabs 0RF Coding Level of Care Code Est Pt Level 4 (73784) Diagnoses UTI (urinary tract infection) N39.0
[2023-11-11 15:57] VITALS: BP 134/82; PULSE 66; TEMP 36.9; O2SAT 98; BMI 26.2
== END 2023-11-11 16:27 | disposition home or self-care (01) ==
PROVIDERS: PCP Nurse Practitioner Family; Visit Provider Physician Assistant
DX: Z13.9 Encounter for screening, unspecified (principal); N39.0 Urinary tract infection, site not specified
CPT/HCPCS: 81003; 99214

== ENCOUNTER 2023-11-11 16:11 | Outpatient (REF) | payer OTHER, SELFPAY | END 2023-11-11 16:12 | disposition home or self-care (01) | LOC: HO.LAB 16:11 | PROVIDERS: Visit Provider Physician Assistant | DX: N39.0 Urinary tract infection, site not specified (principal) | CPT/HCPCS: 87086; 87088; 87186 ==

== ENCOUNTER 2023-12-10 13:59 | Outpatient (AMB) | payer OTHER, SELFPAY ==
[2023-12-10 14:05] VITALS: BP 120/74; PULSE 78; O2SAT 99; BMI 25.2
--- NOTE | 2023-12-10 14:05 | A.OFFPC_ITS ---
Vital Signs 12/10/23 14:05 Height 5 ft 5.5 in Weight 154 lb BMI 25.2 BP 120/74 Blood Pressure Location Rt brachial Position Sitting Pulse 78 Pulse Source Pulse Oximeter Pulse Oximetry (%) 99 Oxygen Delivery Method Room Air Intake Visit Reasons: PE Intake Note: Pt is here today for PE. Allergies gluten Allergy (Verified 12/10/23 14:08) Anxiety Medication List - Last Reconciled 12/10/23 by ASH Barragan-MONROE albuterol sulfate 90 mcg/actuation (ProAir HFA) 2 puffs inhalation Q4-6H PRN buspirone 15 mg PO BID ferrous sulfate (Iron (ferrous sulfate)) 325 mg PO BID levothyroxine 50 mcg PO QAM lorazepam 0.5 mg PO DAILY PRN 30 days pantoprazole (Protonix) 40 mg PO DAILY Tobacco use date assessed: 12/10/23 Dental Screening Dental Screen Date: 05/26/23 HPI PE HPI Details pt is here for a PE. 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 See recent documentation. RUQ pain, ? gallbladder sludge. Pt did not want to follow up with a GS, though i highly recommended a HIDA scan. Pt reports less discomfort to her RUQ, pt has been watching her diet exclusively. Denies any fevers, chills, N/V. Encouraged pt to get labs drawn. Mammo ordered [facility] Medical History Dizziness Surgical History History of section Family History Father Depression Anxiety Bipolar disorder ADD (attention deficit disorder) Sister Depression Son No problems noted. Daughter No problems noted. Other Mental health disorder Social History Housing: House Alcohol intake: never Patient Tobacco Use Status: Former Tobacco user e-Cigarette/Vaping Use: Never Used Second Hand Smoke Exposure: No service: No Current occupational status: employed Cognitive needs: No Hearing needs: No Vision needs: No Questionnaire PHQ-9 Over the last 2 weeks, how often have you been bothered by any of the following problems? 1. Little interest or pleasure in doing things: not at all 2. Feeling down, depressed, or hopeless: not at all 3. Trouble falling or staying asleep, or sleeping too much: not at all 4. Feeling tired or having little energy: not at all 5. Poor appetite or overeating: several days 6. Feeling bad about yourself - or that you are a failure or have let yourself or your family down: not at all 7. Trouble concentrating on things, such as reading the newspaper or watching television: several days 8. Moving or speaking so slowly that other people could have noticed. Or the opposite - being so fidgety or restless that you have been moving around a lot more than usual: not at all 9. Thoughts that you would be better off or of hurting yourself in some way : not at all Total score: 2 Depression Screening Interpretation: Negative Depression Screening Done: Yes 14491 - PHQ-9 Billing: Yes Source: Developed by Drs. Ozzie Rushing, Deloris Viramontes, Evan Bedoya and colleagues, with an educational casimiro from [employer]. Thrive Questionnaire Date Thrive assessed: 12/10/23 I am a: Patient What is your living situation today?: I have a steady place to live Within the past 12 months, did the food you bought not last and you didn't have the money to get more?: Never true Within the past 12 months, did you worry whether your food would run out before you got money to buy more?: Never true Do you have trouble paying for medicines?: No Do you have trouble getting transportation to medical appointments?: No Do you have trouble paying your heating and electricity bill?: No Do you have trouble taking care of your child, family member or friend?: No Do you have trouble with day-to-day activities such as bathing, preparing meals, shopping, managing finances, etc.?: No Are you interested in more education?: No Please select the resources that you would like help with: None Currently or been in a relationship where the following occur: No concerns reported THRIVE Score: 0 AUDIT C Alcohol Use Questionnaire (AUDIT-C) 1. How often do you have a drink containing alcohol?: Monthly or less 2. How many drinks containing alcohol do you have on a typical day when you are drinking?: 1 or 2 3. How often do you have six or more drinks on one occasion?: Never Total Score: 1 DEL-7 AMB Questionnaire DEL-7 Date DEL - 7 assessed: 12/10/23 Feeling nervous, anxious, or on edge: 1 = Several days Not being able to stop or control worryin = Several days Worrying too much about different things: 1 = Several days Trouble relaxin = Several days Being so restless that it is hard to sit still: 1 = Several days Becoming easily annoyed or irritable: 1 = Several days Feeling afraid as if something awful might happen: 1 = Several days Total DEL-7 score (0-4 normal; 5-9 mild; 10-14 moderate; 15-21 severe): 7 Source: Developed by Drs. Ozzie Rushing, Deloris Viramontes, Evan Bedoya and colleagues, with an educational casimiro from [employer]. Review of Systems Const Denies chills and Denies fever(s) Eyes Denies blurry vision ENT Denies vertigo, Denies dizziness and Denies sore throat Card Denies chest pain at rest, Denies chest pain with activity, Denies diaphoresis, Denies dyspnea and Denies dyspnea on exertion Resp Denies cough, Denies dyspnea, Denies dyspnea on exertion and Denies wheezing GI Denies abdominal pain, Denies melena, Denies hematochezia, Reports constipation (intermittent), Denies diarrhea and Denies loose stools Denies hematuria Musc Denies numbness and Denies tingling Skin/Breast Denies lesions Neuro Denies vertigo, Denies dizziness, Denies numbness and Denies tingling Psych Denies anxiety, Denies depression, Denies homicidal ideation, Denies suicidal ideation and Denies other (substance abuse) Aller/Immun Denies wheezing Physical exam (Primary Care) Vital Signs: Last Vital Signs Pulse 78 12/10/23 14:05 BP 120/74 12/10/23 14:05 Pulse Ox 99 12/10/23 14:05 Oxygen Delivery Method Room Air 12/10/23 14:05 BMI result Body Mass Index 25.2 Tobacco/Smoking Status: Tobacco use Status Tobacco use date assessed 12/10/23 12/10/23 14:09 Patient Tobacco Use Status Former Tobacco user 12/10/23 14:09 e-Cigarette/Vaping Use Never Used 12/10/23 14:09 PHQ-9: PHQ-9 Score PHQ-9: Total score 2 12/10/23 14:09 Depression Screening Interpretation: Negative Thrive Assessment: Date of Thrive Assessment Date Thrive assessed 12/10/23 12/10/23 14:09 Currently or been in a relationship where the following occur: No concerns reported Const General: cooperative Nutritional Appearance: well nourished Orientation/consciousness: patient oriented x3 HENMT Head: Yes normal to inspection, Yes normocephalic and Yes atraumatic Ears: TM normal on the right and TM normal on the left Eyes General: appearance normal, both eyes and all related structures Alignment and Position: alignment normal and position normal Neck Neck: Yes normal visual inspection, Yes no lymphadenopathy and Yes supple Resp Effort & Inspection: normal respiratory effort Auscultation: clear to auscultation bilaterally Cardio Rate: regular rate Rhythm: regular rhythm Heart sounds: S1 normal heart sound present, S2 normal heart sound present and no murmurs GI Other: neg murphys sign Palpation (GI): Soft to palpation, nontender, no guarding, not rigid and No Rebound tenderness present Auscultation: normal bowel sounds Skin Rashes: no rashes Neuro General: patient oriented x3, moves all extremities, no focal motor deficits and deep tendon reflexes 2+ bilaterally Romberg Test: Negative Extrem Right lower extremity: no edema Left lower extremity: no edema Psych Affect: normal affect Attitude: cooperative Thought process: Normal thought process present Assessment and Plan Assessment & Plan (1) RUQ pain: Code(s): R10.11 - Right upper quadrant pain Plan: HIDA scan ordered, no symptoms recently, changed her diet (2) Abnormal TSH: Code(s): R79.89 - Other specified abnormal findings of blood chemistry Plan: will cont to monitor Orders: Orders NM hepatobiliary w pharm Today R10.11 - Right upper quadrant pain MM screening mammo BI Today Z12.31 - Encounter for screening mammogram for malignant neoplasm of breast US thyroid Today R79.89 - Other specified abnormal findings of blood chemistry Coding Level of Care Code Est Pt Prev Care 40-64y(25075) Diagnoses RUQ pain R10.11 Abnormal TSH R79.89
== END 2023-12-10 14:40 | disposition home or self-care (01) ==
PROVIDERS: PCP Nurse Practitioner Family; Visit Provider Nurse Practitioner Family
DX: Z00.00 Encounter for general adult medical examination without abnormal findings (principal); R10.11 Right upper quadrant pain; R79.89 Other specified abnormal findings of blood chemistry

== ENCOUNTER → 2023-12-10 13:59 | Outpatient (BNVA) | payer OTHER, SELFPAY | PROVIDERS: PCP Nurse Practitioner Family; Visit Provider Nurse Practitioner Family | DX: R10.11 Right upper quadrant pain (principal); R79.89 Other specified abnormal findings of blood chemistry | CPT/HCPCS: 96127; 99396 ==

== ENCOUNTER 2024-01-01 14:32 | Outpatient (REF) | payer OTHER, SELFPAY | END 2024-01-01 14:33 | disposition home or self-care (01) | LOC: HO.HMGCX 14:32 | PROVIDERS: PCP Nurse Practitioner Family; Visit Provider Nurse Practitioner Family | DX: R94.6 Abnormal results of thyroid function studies (principal) | CPT/HCPCS: 76536 ==

== ENCOUNTER 2024-01-30 08:14 | Outpatient (REF) | payer OTHER, SELFPAY ==
--- NOTE | ~2024-01-30 | MM_ITS ---
EXAMINATION: MM SCREENING DIGITAL BREAST TOMOSYNTHESIS, BILATERAL CLINICAL INFORMATION: Screening. Asymptomatic. COMPARISON: Mammography: Baseline. TECHNIQUE: Digital breast mammography with tomosynthesis is performed in both the craniocaudal and mediolateral oblique views along with computer-aided detection (CAD). FINDINGS: The breasts are heterogeneously dense, which may obscure small masses (ACR BI-RADS breast composition Category c). There are no significant masses, abnormal calcifications, or other abnormalities. MM/MM tomosynthesis screening BI IMPRESSION: No mammographic evidence of malignancy. ASSESSMENT: BI-RADS BI-RADS 1 - Negative RECOMMENDATION: Routine annual mammography screening. 1 year F/U This examination should not preclude the clinical evaluation of a suspicious palpable abnormality. This patient's information was entered into a reminder system with a target due date for their next mammogram. Electronically signed by: Carlee Mcnulty DO 02/06/2024 01:03 PM SARAI
== END 2024-01-30 08:15 | disposition home or self-care (01) ==
LOC: HO.MAMMO 08:14
PROVIDERS: PCP Nurse Practitioner Family; Visit Provider Nurse Practitioner Family
DX: Z12.31 Encounter for screening mammogram for malignant neoplasm of breast (principal)
CPT/HCPCS: 77063; 77067

== ENCOUNTER → 2024-01-30 08:16 | Outpatient (BNV) | payer OTHER, SELFPAY | PROVIDERS: PCP Nurse Practitioner Family; Visit Provider Internal Medicine | DX: Z12.31 Encounter for screening mammogram for malignant neoplasm of breast (principal) | CPT/HCPCS: 77063; 77067 ==

== ENCOUNTER 2024-06-05 10:05 | Outpatient (REF) | payer OTHER, SELFPAY ==
[2024-06-05 12:03] LABS: MANUAL DIFF FLAG NO
[2024-06-05 12:10] LABS: Eosinophils Percent Auto 0.6 % (0-4); Hematocrit 36.5 % (37.0-47.0); Lymphocytes Absolute Auto 1.1 X10*3/uL (1.2-4.9); Lymphocytes Percent Auto 36.2 % (20-40); Mean Corpuscular HGB Conc 32.9 g/dl (31.0-35.0); Mean Corpuscular Hemoglobin 29.3 pg (27.0-33.0); Mean Platelet Volume 10.4 fL (9.4-12.3); Monocytes Absolute Auto 0.3 X10*3/uL (0.1-1.2); Monocytes Percent Auto 7.9 % (2-11); Neutrophils Absolute Auto 1.7 x10*3/uL (2.0-8.3); Neutrophils Percent Auto 54.3 % (45-73); Platelet Count 255 X10*3/uL (160-400); Red Cell Distribution Width 12.3 % (11.0-16.0); White Blood Count 3.2 X10*3/uL (4.8-10.8)
[2024-06-05 12:39] LABS: Appearance Urine Clear; Color Urine Yellow; Glucose Urine UA Negative (Negative); Leukocyte Esterase Urine Negative (Negative); Nitrite Urine Negative (Negative); Specific Gravity - Urine 1.025 (1.005-1.025); Urine Blood Negative (Negative); Urine Ketones Negative (Negative); Urine Protein Negative (Neg-Trace)
[2024-06-05 12:48] LABS: Alanine Aminotransferase 12 U/L (0-31); Albumin Level 4.1 g/dL (3.5-5.0); Alkaline Phosphatase 35 U/L (39-117); Anion Gap 10 (12-20); Aspartate Amino Transferase 16 U/L (5-31); Bilirubin Total 0.3 mg/dL (0.0-1.0); Blood Urea Nitrogen 17 mg/dL (9-16); Calcium 8.8 mg/dL (8.4-10.2); Carbon Dioxide 26 mmol/L (22-29); Chloride 107 mmol/L (96-108); Cholesterol 171 mg/dL (<200); Estimated Glomerular Filt Rate > 60; Glucose Fasting 84 mg/dL (60-99); HDL Cholesterol 75 mg/dL (>40); Iron 106 mcg/dL (30-160); LDL Cholesterol Calculated 89 mg/dL (<100); Percent Iron Saturation 36 % (15-50); Potassium 4.1 mmol/L (3.3-5.1); Sodium 139 mmol/L (135-145); Total Iron Binding Capacity 297 mcg/dL (228-428); Total Protein 7.4 g/dL (6.5-8.0); Triglycerides 38 mg/dL (<150); Unsaturated Iron Binding 191 ug/dL
[2024-06-05 13:06] LABS: Ferritin 35 ng/mL (10-250); TSH reflex Free T4 1.53 uIU/mL (0.32-4.0)
[2024-06-05 13:20] LABS: Folate 5.7 ng/mL (> or = 4.0); Vitamin B12 453 pg/mL (200-900)
== END 2024-06-05 10:06 | disposition home or self-care (01) ==
LOC: HO.HMGCLDS 10:05
PROVIDERS: PCP Nurse Practitioner Family; Visit Provider Nurse Practitioner Family
DX: Z00.00 Encounter for general adult medical examination without abnormal findings (principal); D64.9 Anemia, unspecified
CPT/HCPCS: 36415; 80053; 80061; 81003; 82607; 82728; 82746; 83540; 84443; 85025

== ENCOUNTER 2024-06-08 13:12 | Outpatient (AMB) | payer OTHER, SELFPAY ==
--- NOTE | 2024-06-08 13:17 | A.OFFPC_ITS ---
Vital Signs 06/08/24 13:19 Height 5 ft 5.5 in Weight 158 lb BMI 25.9 BP 118/68 Blood Pressure Location Rt brachial Position Sitting Respiration 18 Pulse 68 Pulse Source Pulse Oximeter Temp 98.8 F Temp Source Oral Pulse Oximetry (%) 98 Oxygen Delivery Method Room Air Intake Visit Reasons: 6 months f/up Intake Note: Pt is here today for 6 months follow up visit. Allergies gluten Allergy (Verified 06/08/24 13:21) Anxiety Tobacco use date assessed: 06/08/24 Dental Screening Dental Screen Date: 06/08/24 Did you have a dental visit in the last 12 months?: Yes Did you have a dental problem in the last 6 months where you did not have access to dental care?: No Was dental information given to patient?: Patient has dentist HPI 6 months f/up HPI Details Chief Complaint Patient presents for evaluation of lung nodules noted on previous CT scan and a faint systolic murmur. History of Present Illness The patient is a 38-year-old female presenting with an evaluation of lung nodules and a faint cardiac murmur. Previous imaging revealed nodules in the lungs on a CT scan undertaken during the patient's period of vaping. Following this discovery, she discontinued vaping immediately. Want to repeat CT scan to determine any changes or ongoing activity. The patient has no symptomatic complaints associated with these nodules or any related pulmonary issues. A faint systolic murmur was identified during the auscultation of the heart, specifically in the pulmonic region. The murmur has not been accompanied by any additional symptoms or cardiac distress at this time. ECHO last year. Social History - Employment: She is employed and recent ly received a promotion. - Substance Use: History of vaping; ceas ed on the day lung nodules were detected. - Activity Level: The patient is fairly active. Health Maintenance Review of Systems - Respiratory: Denies pain, shortness of breath, or respiratory distress. -denies any current fatigue, N/V, weight loss, fevers, or chills Physical Exam General: Cooperative, healthy appearing, comfortable, no acute distress and well developed Orientation: Patient oriented x3 Limitations: No limitations Head: Normal to inspection Ears: Hearing grossly normal bilaterally Nose: Normal external nose present Face and sinus: Normal facial exam Eyes: Appearance normal, both eyes and all related structures Neck: Normal visual inspection and Yes full ROM Respiratory: Normal respiratory effort and able to speak in complete sentences. Clear to auscultation bilaterally Cardiovascular: Regular rate and rhythm. S1 S2 faint systolic murmur in the pulmonic region GI: Normal to inspection. Soft to palpation and nontender Skin: No rashes or lesions noted Neuro: Patient oriented x3 Extremities: Normal to inspection Results - Imaging: Previous CT scan revealed yu g nodules. Plan I will refer the patient to hematology for further evaluation. A repeat CT scan will be conducted to reassess the identified lung nodules for any hyperactivity or changes since the patient ceased vaping. The faint systolic murmur observed in the pulmonic region will be monitored, and further evaluation will be considered should any symptoms develop. Discussion Notes During the visit, I discussed with the patient the findings from the previous CT scan showing lung nodules. I emphasized the importance of a follow-up scan to reevaluate these findings as there can be changes post cessation of vaping. I also explained her referral to hematology for further diagnostic evaluation and treatment considerations. I discussed the observed faint systolic murmur, explaining that while current symptoms are absent, if any arise, further cardiac evaluation might be required. The patient agreed with the management plan as outlined. Patient Instructions - Schedule and attend a repeat CT scan a s planned. - Follow up with hematology as discussed . - Monitor any new symptoms, particularly respiratory or cardiovascular, and report them promptly. - Continue abstaining from vaping and an y other tobacco products. - Maintain a healthy lifestyle and remai n physically active. [facility] Medical History Dizziness Surgical History History of section Family History Father Depression Anxiety Bipolar disorder ADD (attention deficit disorder) Sister Depression Son No problems noted. Daughter No problems noted. Other Mental health disorder Social History Housing: House Alcohol intake: never Patient Tobacco Use Status: Former Tobacco user e-Cigarette/Vaping Use: Never Used Second Hand Smoke Exposure: No service: No Current occupational status: employed Cognitive needs: No Hearing needs: No Vision needs: No Questionnaire PHQ-9 Over the last 2 weeks, how often have you been bothered by any of the following problems? 1. Little interest or pleasure in doing things: not at all 2. Feeling down, depressed, or hopeless: not at all 3. Trouble falling or staying asleep, or sleeping too much: not at all 4. Feeling tired or having little energy: not at all 5. Poor appetite or overeating: not at all 6. Feeling bad about yourself - or that you are a failure or have let yourself or your family down: not at all 7. Trouble concentrating on things, such as reading the newspaper or watching television: not at all 8. Moving or speaking so slowly that other people could have noticed. Or the opposite - being so fidgety or restless that you have been moving around a lot more than usual: not at all 9. Thoughts that you would be better off or of hurting yourself in some way: not at all Total score: 0 Depression Screening Interpretation: Negative Depression Screening Done: Yes 62098 - PHQ-9 Billing: Yes Source: Developed by Drs. Ozzie Rushing, Deloris Viramontes, Evan Bedoya and colleagues, with an educational casimiro from [employer]. Thrive Questionnaire Date Thrive assessed: 06/08/24 I am a: Patient What is your living situation today?: I have a steady place to live Within the past 12 months, did the food you bought not last and you didn't have the money to get more?: Never true Within the past 12 months, did you worry whether your food would run out before you got money to buy more?: Never true Do you have trouble paying for medicines?: No Do you have trouble getting transportation to medical appointments?: No Do you have trouble paying your heating and electricity bill?: No Do you have trouble taking care of your child, family member or friend?: No Do you have trouble with day-to-day activities such as bathing, preparing meals, shopping, managing finances, etc.?: No Are you currently unemployed and looking for a job?: No Are you interested in more education?: No Please select the resources that you would like help with: None Currently or been in a relationship where the following occur: I choose not to answer THRIVE Score: 0 AUDIT C Alcohol Use Questionnaire (AUDIT-C) 1. How often do you have a drink containing alcohol?: Monthly or less 2. How many drinks containing alcohol do you have on a typical day when you are drinking?: 1 or 2 3. How often do you have six or more drinks on one occasion?: Never Total Score: 1 DEL-7 AMB Questionnaire DEL-7 Date DEL - 7 assessed: 06/08/24 Feeling nervous, anxious, or on edge: 1 = Several days Not being able to stop or control worryin = Several days Worrying too much about different things: 1 = Several days Trouble relaxin = Not at all Being so restless that it is hard to sit still: 0 = Not at all Becoming easily annoyed or irritable: 1 = Several days Feeling afraid as if something awful might happen: 1 = Several days Total DEL-7 score (0-4 normal; 5-9 mild; 10-14 moderate; 15-21 severe): 5 Source: Developed by Drs. Ozzie Rushing, Deloris Viramontes, Evan Bedoya and colleagues, with an educational casimiro from [employer]. DEL-7 Assessment Billing DEL-7 Assessment Tool: DEL-7 Assessment 92230 Physical exam (Primary Care) Vital Signs: Last Vital Signs Temp 98.8 F 06/08/24 13:19 Pulse 68 06/08/24 13:19 Resp 18 06/08/24 13:19 BP 118/68 06/08/24 13:19 Pulse Ox 98 06/08/24 13:19 Oxygen Delivery Method Room Air 06/08/24 13:19 BMI result Body Mass Index 25.9 Tobacco/Smoking Status: Tobacco use Status Tobacco use date assessed 06/08/24 06/08/24 13:25 Patient Tobacco Use Status Former Tobacco user 06/08/24 13:19 e-Cigarette/Vaping Use Never Used 06/08/24 13:19 PHQ-9: PHQ-9 Score PHQ-9: Total score 0 06/08/24 13:54 Depression Screening Interpretation: Negative Thrive Assessment: Date of Thrive Assessment Date Thrive assessed 06/08/24 06/08/24 13:19 Currently or been in a relationship where the following occur: I choose not to answer Coding Level of Care Code Est Pt Level 3 (54092) Diagnoses Pulmonary nodules R91.8 Leukopenia D72.819 Additional Codes DEL-7 Assessment Billing - DEL-7 Assessment Tool: DEL-7 Assessment 57230 ([id number]) PHQ-9 - 41055 - PHQ-9 Billing: Yes ([id number]) Assessment & Plan Assessment & Plan (1) Pulmonary nodules: Code(s): R91.8 - Other nonspecific abnormal finding of lung field Category: Medical (2) Leukopenia: Code(s): D72.819 - Decreased white blood cell count, unspecified Category: Medical Plan . Orders: Orders CT chest wo IV con Today R91.8 - Other nonspecific abnormal finding of lung field Referrals Hematology & Oncology Referral D72.819 - Decreased white blood cell count, unspecified
[2024-06-08 13:19] VITALS: BP 118/68; PULSE 68; RESP 18; TEMP 37.1; O2SAT 98; BMI 25.9
--- OUTSIDE RECORDS SUMMARY | 2024-06-08 16:02 | XMS_ITS | Encounter Summary ---
Author Organization [employer] Address [address] [facility] [address] [place] [address] Care Team Providers Care Outside Sales Account Manager Name Role Phone Unavailable Primary Care Provider Unavailabl e Encounter Details Date Type Department Care Team (Latest Contact Info) Description 07/30/2021 Abstract C CONVERSIONS Dental, Provider, DDS Social History Tobacco Use Types Packs/Day Years Used Date Smoking Tobacco: Never Assessed Comments Unknown Sex and Gender Information Value Date Recorded Sex Assigned at Female 01/14/2022 10:19 AM EDT Legal Sex Female 10:19 AM EDT Gender Identity Choose not to disclose 10:19 AM EDT Sexual Orientation Choose not to disclose 2021 10:19 AM EDT documented as of this encounter Plan of Treatment Not on file documented as of this encounter Visit Diagnoses Not on filedocumented in this encounter
--- OUTSIDE RECORDS SUMMARY | 2024-06-08 16:03 | XMS_ITS | Clinical Summary ---
Author Organization [employer] Address [address] [facility] [address] [place] [address] Care Team Providers Care Fence Supervisor Name Role Phone Unavailable Primary Care Provider Unavailabl e Allergies No known active allergies Medications levothyroxine (Synthroid, Levoxyl) 50 MCG tablet Take 50 mcg by mouth in the morning. 12/26/2022 Active LORazepam (Ativan) 0.5 MG tablet TAKE 1 TABLET BY MOUTH EVERY DAY NEEDED FOR ANXIETY FOR 30 DAYS 12/24/2022 Active ferrous sulfate 325 (65 Fe) MG tablet Take 1 tablet by mouth 2 times daily. 12/26/2022 Active Social History Tobacco Use Types Packs/Day Years Used Date Smoking Tobacco: Never Smokeless Tobacco: Never Tobacco Cessation:Counseling Given: No Alcohol Use Standard Drinks/Week Comments Yes 0 (1 standard drink = 0.6 oz pur e alcohol) holiday Comments Unknown Sex and Gender Information Value Date Recorded Sex Assigned at Female 01/14/2022 10:19 AM EDT Legal Sex Female 10:19 AM EDT Gender Identity Choose not to disclose 10:19 AM EDT Sexual Orientation Choose not to disclose 2021 10:19 AM EDT Plan of Treatment Health Maintenance Due Date Last Done Comments Depression Screening 1983 HIV Screening 1983 SDOH Screening 1983 Alcohol/Substance Use Screening 1995 Family Planning (PISQ) 06/25/1998 Hepatitis C Screening 06/25/2001 Hepatitis B Vaccines (1 of 3 - 19+ 3-dose series) 06/25/2002 Pap Smear 06/25/2004 Cervical Cancer Screening 06/25/2013 HPV/Cotest 06/25/2013 Dental X-Ray: Full Mouth 11/14/2019 11/12/2016 Dental Oral Exam 01/31/2022 07/30/2021, 11/12/2016 Dental Prophylaxis 01/31/2022 07/30/2021, 11/12/2016 DTaP/Tdap/Td Vaccines (2 - T d or Tdap) 05/20/2022 05/20/2012 Dental X-Ray: Bitewings 07/31/2022 07/31/19 22, 12/19/2016, 11/12/2016 Mammogram 2023 COVID-19 Vaccine (3 - 2023-2 5 season) 2023 02/21/2021, 01/30/2021 Influenza Vaccine (#1) 2023 3, 02/13/2009 Tobacco Screening 01/01/2024 12/31/2022 Zoster Vaccines (1 of 2) 06/25/2033 RSV Patients and Patients Aged 60 years or older (1 - 1-dose 75+ series) 06/25/2058 HIB Vaccines Aged Out No longer eligi ble based on patient's age to complete this topic HPV Vaccines Aged Out No longer eligi ble based on patient's age to complete this topic Hepatitis A Vaccines Aged Out No long er eligible based on patient's age to complete this topic IPV Vaccines Aged Out No longer eligi ble based on patient's age to complete this topic Meningococcal Vaccine Aged Out No josé steven eligible based on patient's age to complete this topic Pneumococcal Vaccine: Pediatrics (0 to 5 Years) and At-Risk Patients (6 to 49) Years) Aged Out No longer eligible b ased on patient's age to complete this topic RSV under 20 months Aged Out No longe r eligible based on patient's age to complete this topic Rotavirus Vaccines Aged Out No longer eligible based on patient's age to complete this topic Procedures Procedure Name Priority Date/Time Associated Diagnosis Comments PROPHYLAXIS - ADULT Routine 07/30/2021 1 2:00 AM EDT BITEWINGS - 4 RADIOGRAPHIC IMAGES Routine 07/30/2021 12:00 AM EDT PERIODIC ORAL EVALUATION - ESTABLISHED PATIENT Routine 07/30/2021 12:00 AM EDT INTRAORAL - COMPLETE SERIES OF RADIOGRAPHIC IMAGES Routine 11/12/2016 12:00 AM EDT from Last 3 Months or Most Recently Relevant to Health Maintenance Insurance [facility] MEDICAID STAND ADULT
--- OUTSIDE RECORDS SUMMARY | 2024-06-08 16:03 | XMS_ITS | Clinical Summary ---
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 At least) Family History Medical History Relation Name Comments Mental illness Father Bipolar Breast cancer Neg Hx Colon cancer Neg Hx Relation Name Status Comments Brother Alive Father Alive Mother Alive Sister 1 Alive Sister 2 Alive Social History Tobacco Use Types Packs/Day Years Used Date Smoking Tobacco: Every Day Cigarettes Smokeless Tobacco: Never Alcohol Use Standard Drinks/Week Comments Yes 0 (1 standard drink = 0.6 oz pur e alcohol) Comments Unknown Sex and Gender Information Value Date Recorded Sex Assigned at Not on file Legal Sex Female 4:26 AM EST Gender Identity Not on file Sexual Orientation Not on file Obstetrics History Plan of Treatment Health Maintenance Due Date Last Done Comments Breast Cancer Screening 1983 Hepatitis B Vaccines (1 of 3 - 19+ 3-dose series) 06/25/2002 Pneumococcal Vaccine: Pediatrics (0 to 5 Years) and At-Risk Patients (6 to 64 Years) (1 of 2 - PCV) 06/25/2002 Cervical Cancer Screening: P ap Smear 06/25/2004 Depression Screening 02/17/2022 HIV Screening 02/17/2022 Hepatitis C Screening 02/17/2022 Social Influencers of Health Screening 02/17/2022 DTaP,Tdap,and Td Vaccines (2 - Td or Tdap) 05/20/2022 05/20/2012 COVID-19 Vaccine (1 - 2023-2 5 season) 2023 Influenza Vaccine (#1) 2023 3, 02/13/2009 HIB Vaccines Aged Out No longer eligi [...] on patient's age to complete this topic MMR Vaccines Aged Out No longer eligi ble based on patient's age to complete this topic Meningococcal ACWY Vaccine Aged Out N o longer eligible based on patient's age to complete this topic Meningococcal B Vacine Aged Out No lo nger eligible based on patient's age to complete this topic RSV Immunization Patients Under 20 months Aged Out No longer eligible b ased on patient's age to complete this topic Varicella Vaccines Aged Out No longer eligible based on patient's age to complete this topic Care Teams Locator Specialist Relationship Specialty Start Date End Date Kate Morales MD [facility] [address] PCP - General Internal Medicine 05/01/15
== END 2024-06-08 14:15 | disposition home or self-care (01) ==
LOC: HO.HMCC 13:13
PROVIDERS: PCP Nurse Practitioner Family; Visit Provider Nurse Practitioner Family
DX: R91.8 Other nonspecific abnormal finding of lung field (principal); D72.819 Decreased white blood cell count, unspecified

== ENCOUNTER → 2024-06-08 13:12 | Outpatient (BNVA) | payer OTHER, SELFPAY | PROVIDERS: PCP Nurse Practitioner Family; Visit Provider Nurse Practitioner Family | DX: R91.8 Other nonspecific abnormal finding of lung field (principal); D72.819 Decreased white blood cell count, unspecified | CPT/HCPCS: 96127; 99212 ==

== ENCOUNTER 2024-06-24 16:40 | Outpatient (REF) | payer OTHER, SELFPAY ==
--- NOTE | ~2024-06-24 | CT_ITS ---
CLINICAL HISTORY: R91.8 - Other nonspecific abnormal finding of lung field CT chest without contrast Comparison: None Findings: The heart size is normal. The visualized thyroid and mediastinum are unremarkable. The lungs are clear. Small calcified granulomas. The upper abdomen is unremarkable. No acute fractures. IMPRESSION: 1. Unremarkable chest CT. This document has been electronically signed by: Bruno Motta MD on 06/24/2024 17:43:21
--- OUTSIDE RECORDS SUMMARY | 2024-06-24 18:07 | XMS_ITS | Clinical Summary ---
Author Organization [employer] Address [address] [place] [address] Care Team Providers Care Order Taker Name Role Phone Kate Morales MD Primary Care Provider [phone] Surgical History Surgery Date Site/Laterality Comments SECTION [...] - 2023-2 5 season) 2023 Influenza Vaccine (Season Ended) 2024 05/20/2012, 02/13/2009 HIB Vaccines Aged Out No longer [...] age to complete this topic Meningococcal B Vaccine Aged Out No l onger eligible based on patient's age to complete this topic RSV Immunization Patients Under 20 months Aged Out No longer eligible b ased on patient's age to complete this topic Varicella Vaccines Aged Out No longer eligible based on patient's age to complete this topic Care Teams Order Taker Relationship Specialty Start Date End [place] [address] PCP - General Internal Medicine 05/01/15
--- OUTSIDE RECORDS SUMMARY | 2024-06-24 18:07 | XMS_ITS | Encounter Summary ---
Author Organization [employer] Address [address] [facility] [address] [place] [address] Care Team Providers Care Rope Twisting Machine Operator Name Role Phone Unavailable Primary Care Provider [...] EDT Gender Identity Choose not to disclose 2 10:19 AM EDT Sexual Orientation Choose not to disclose 2021 10:19 AM EDT documented as of this encounter Plan of Treatment Not on file documented as of this encounter Visit Diagnoses Not on filedocumented in this encounter
--- OUTSIDE RECORDS SUMMARY | 2024-06-24 18:07 | XMS_ITS | Clinical Summary ---
Author Organization [employer] Address [address] [facility] [address] [place] [address] Care Team Providers Care Clinical Project Manager Name Role Phone Unavailable Primary Care [...] Most Recently Relevant to Health Maintenance Insurance [facility] MEDICAID STAND ADULT
== END 2024-06-24 16:41 | disposition home or self-care (01) ==
LOC: HO.CT 16:40
PROVIDERS: PCP Nurse Practitioner Family; Visit Provider Nurse Practitioner Family
DX: R91.8 Other nonspecific abnormal finding of lung field (principal)
CPT/HCPCS: 71250

== ENCOUNTER → 2024-06-24 16:43 | Outpatient (BNV) | payer OTHER, SELFPAY | PROVIDERS: PCP Nurse Practitioner Family; Visit Provider Nuclear Medicine | DX: R91.8 Other nonspecific abnormal finding of lung field (principal) | CPT/HCPCS: 71250 ==

== ENCOUNTER → 2024-07-06 14:26 | Outpatient (BNV) | payer OTHER, SELFPAY | PROVIDERS: PCP Nurse Practitioner Family; Referring Provider Nurse Practitioner Family; Visit Provider Internal Medicine | DX: D72.819 Decreased white blood cell count, unspecified (principal) | CPT/HCPCS: 99204 ==

== ENCOUNTER 2024-12-15 14:02 | Outpatient (AMB) | payer OTHER, SELFPAY ==
[2024-12-15 14:32] VITALS: BP 120/74; PULSE 68; RESP 16; TEMP 37.2; O2SAT 99; BMI 24.0
--- NOTE | 2024-12-15 14:32 | MHC.PC.OV ---
Vital Signs 12/15/24 14:32 Height 5 ft 5 in Weight 144 lb BMI 24.0 BP 120/74 Blood Pressure Location Lt brachial Position Sitting Respiration 16 Pulse 68 Pulse Source Pulse Oximeter Temp 98.9 F Temp Source Oral Pulse Oximetry (%) 99 Oxygen Delivery Method Room Air Intake Visit Reasons: PE Restorative Aide Required: No Accompanied by: Self / Same As Patient Allergies gluten Allergy (Verified 12/15/24 14:35) Anxiety Medication List - Last Reconciled 12/15/24 by ASH Barragan- albuterol sulfate 90 mcg/actuation (ProAir HFA) 2 puffs inhalation Q4-6H PRN buspirone 15 mg PO BID ferrous sulfate (Iron (ferrous sulfate)) 325 mg PO BID levothyroxine 50 mcg PO QAM lorazepam 0.5 mg PO DAILY PRN pantoprazole (Protonix) 40 mg PO DAILY Tobacco use date assessed: 12/15/24 Dental Screening Dental Screen Date: 12/15/24 Did you have a dental visit in the last 12 months?: Yes Did you have a dental problem in the last 6 months where you did not have access to dental care?: No Was dental information given to patient?: Patient has dentist HPI PE HPI Details History of Present Illness The patient is a 39-year-old female presenting for a physical exam. She underwent abdominal skin removal surgery in August, addressing excess skin from previous pregnancies. The surgical site is healing well, with no signs of infection and well-approximated incision edges. The patient has a history of thyroid issues, and a T3 test is planned for her upcoming lab work. She denies any symptoms such as chest pain, shortness of breath, or gastrointestinal issues. She also denies any suicidal or homicidal ideation and reports overall well-being, including regular exercise at the gym. 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 Social History - Exercise: Regular gym attendance Review of Systems - Cardiovascular: Denies chest pain - Respiratory: Denies dyspnea - Gastrointestinal: Denies abdominal pain, constipation, diarrhea - Psychiatric: Denies suicidal ideation, denies homicidal ideation Physical Exam General: Cooperative, healthy appearing, comfortable, no acute distress and well developed Orientation: Patient oriented x3 Limitations: No limitations Head: Normal to inspection Ears: Hearing grossly normal bilaterally Nose: Normal external nose present Face and sinus: Normal facial exam Eyes: Appearance normal, both eyes and all related structures Neck: Normal visual inspection and Yes full ROM Respiratory: Normal respiratory effort and able to speak in complete sentences. Clear to auscultation bilaterally Cardiovascular: Regular rate and rhythm. Normal S1 and S2 GI: Normal to inspection. Soft to palpation and nontender Skin: Incision on the abdomen, lower abdomen, pelvic region is healing quite well, well approximated, no signs of infection Neuro: Patient oriented x3 Extremities: Normal to inspection Plan 1. History Of hypothyroidism The patient will have a T3 test included in her upcoming lab work due to her history of thyroid issues. 2. Preventative Care: Physical Exam The patient attended a physical exam to ensure her overall health is maintained. Discussion Notes During the visit, we discussed the patient's recent abdominal skin removal surgery and its successful healing process. We also planned for a T3 test due to her history of thyroid issues. Patient Instructions - Continue regular exercise at the gym. - Follow up with lab work including a T3 test. [facility] Medical History Dizziness Surgical History History of section Family History Father Depression Anxiety Bipolar disorder ADD (attention deficit disorder) Sister Depression Son No problems noted. Daughter No problems noted. Other Mental health disorder Social History Household Members: Significant Other and Children Housing: House Alcohol intake: never Patient Tobacco Use Status: Former Tobacco user Tobacco use type: Cigarette e-Cigarette/Vaping Use: Never Used Second Hand Smoke Exposure: No service: No Current occupational status: employed Cognitive needs: No Hearing needs: No Vision needs: No Questionnaire PHQ-9 Over the last 2 weeks, how often have you been bothered by any of the following problems? 1. Little interest or pleasure in doing things: not at all 2. Feeling down, depressed, or hopeless: not at all 3. Trouble falling or staying asleep, or sleeping too much: not at all 4. Feeling tired or having little energy: not at all 5. Poor appetite or overeating: not at all 6. Feeling bad about yourself - or that you are a failure or have let yourself or your family down: not at all 7. Trouble concentrating on things, such as reading the newspaper or watching television: not at all 8. Moving or speaking so slowly that other people could have noticed. Or the opposite - being so fidgety or restless that you have been moving around a lot more than usual: not at all 9. Thoughts that you would be better off or of hurting yourself in some way: not at all Total score: 0 Depression Screening Interpretation: Negative Depression Screening Done: Yes 20873 - PHQ-9 Billing: Yes Source: Developed by Drs. Ozzie Rushing, Deloris Viramontes, Evan Bedoya and colleagues, with an educational casimiro from [employer]. Thrive Questionnaire Date Thrive assessed: 06/08/24 I am a: Patient What is your living situation today?: I have a steady place to live Within the past 12 months, did the food you bought not last and you didn't have the money to get more?: Never true Within the past 12 months, did you worry whether your food would run out before you got money to buy more?: Never true Do you have trouble paying for medicines?: No Do you have trouble getting transportation to medical appointments?: No Do you have trouble paying your heating and electricity bill?: No Do you have trouble taking care of your child, family member or friend?: No Do you have trouble with day-to-day activities such as bathing, preparing meals, shopping, managing finances, etc.?: No Are you currently unemployed and looking for a job?: No Are you interested in more education?: No Please select the resources that you would like help with: None Currently or been in a relationship where the following occur: I choose not to answer THRIVE Score: 0 DEL-7 AMB Questionnaire DEL-7 Date DEL - 7 assessed: 12/15/24 Feeling nervous, anxious, or on edge: 1 = Several days Not being able to stop or control worryin = Several days Worrying too much about different things: 1 = Several days Trouble relaxin = Not at all Being so restless that it is hard to sit still: 0 = Not at all Becoming easily annoyed or irritable: 1 = Several days Feeling afraid as if something awful might happen: 1 = Several days Total DEL-7 score (0-4 normal; 5-9 mild; 10-14 moderate; 15-21 severe): 5 Source: Developed by Drs. Ozzie Rushing, Deloris Viramontes, Evan Bedoya and colleagues, with an educational casimiro from [employer]. Physical exam (Primary Care) Vital Signs: Last Vital Signs Temp 98.9 F 12/15/24 14:32 Pulse 68 12/15/24 14:32 Resp 16 12/15/24 14:32 BP 120/74 12/15/24 14:32 Pulse Ox 99 12/15/24 14:32 Oxygen Delivery Method Room Air 12/15/24 14:32 BMI result Body Mass Index 24.0 Tobacco/Smoking Status: Tobacco use Status Tobacco use date assessed 12/15/24 12/15/24 14:38 Patient Tobacco Use Status Former Tobacco user 12/15/24 14:38 Tobacco use type Cigarette 12/15/24 14:38 e-Cigarette/Vaping Use Never Used 12/15/24 14:38 PHQ-9: PHQ-9 Score PHQ-9: Total score 0 12/15/24 14:38 Depression Screening Interpretation: Negative Thrive Assessment: Date of Thrive Assessment Date Thrive assessed 06/08/24 12/15/24 14:38 Currently or been in a relationship where the following occur: I choose not to answer Coding Level of Care Code Est Pt Prev Care 40-64y(29246) Diagnoses Physical exam Z00. Abnormal TSH R79.89 Additional Codes PHQ-9 - 59091 - PHQ-9 Billing: Yes ([id number]) Assessment & Plan Assessment & Plan (1) Physical exam: Code(s): Z00.00 - Encounter for general adult medical examination without abnormal findings Category: Medical (2) Abnormal TSH: Code(s): R79.89 - Other specified abnormal findings of blood chemistry Category: Medical Plan . Orders: Orders Comprehensive [place]. Panel Fast Today Z00.00 - Encounter for general adult medical examination without abnormal findings TSH reflex Free T4 Today Z00.00 - Encounter for general adult medical examination without abnormal findings UA CC w/rflx Micro + Cult Today Z00.00 - Encounter for general adult medical examination without abnormal findings Lipid Panel Today Z00.00 - Encounter for general adult medical examination without abnormal findings Triiodothyronine T3 Free Today R79.89 - Other specified abnormal findings of blood chemistry, Z00.00 - Encounter for general adult medical examination without abnormal findings Complete Blood Count Auto Diff Today Z00.00 - Encounter for general adult medical examination without abnormal findings
--- OUTSIDE RECORDS SUMMARY | 2024-12-15 15:14 | XMS_ITS | Clinical Summary ---
Author Organization [employer] Address [address] [facility] [address] [place] [address] Care Team Providers Care Impregnator And Drier Helper Name Role Phone Unavailable Primary Care Provider [...] 1983 HIV Screening 1983 SDOH Screening 1983 Disability Screening 1983 Alcohol/Substance Use Screening 1995 Family Planning (PISQ) 06/25/1998 HPV Vaccines (1 - 3-dose series) 06/25/1998 Hepatitis C Screening 06/25/2001 Hepatitis B Vaccines (1 of 3 - 19+ 3-dose series) 06/25/2002 Pap Smear 06/25/2004 Cervical Cancer Screening 06/25/2013 HPV/Cotest 06/25/2013 Dental X-Ray: Full Mouth 11/14/2019 11/12/2016 Dental Oral Exam 01/31/2022 07/30/2021, 11/12/2016 Dental Prophylaxis 01/31/2022 07/30/2021, 11/12/2016 DTaP/Tdap/Td Vaccines (2 - T d or Tdap) 05/20/2022 05/20/2012 Dental X-Ray: Bitewings 07/31/2022 07/31/19 22, 12/19/2016, 11/12/2016 Mammogram 2023 Tobacco Screening 01/01/2024 12/31/2022 COVID-19 Vaccine (3 - 2024-2 6 season) 2024 02/21/2021, 01/30/2021 Influenza Vaccine (#1) 2024 3, 02/13/2009 Zoster Vaccines (1 of 2) 06/25/2033 RSV [...] Years) and At-Risk Patients (6 to 49) Years Aged Out No longer eligible b ased [...] Most Recently Relevant to Health Maintenance Insurance [facility] MEDICAID STAND ADULT
--- OUTSIDE RECORDS SUMMARY | 2024-12-15 15:14 | XMS_ITS | Clinical Summary ---
Author Organization [facility] Address [address] [place] [address] Care Team Providers Care Pig Casting Machine Operator Name Role Phone Kate Morales MD Primary Care Provider [phone] Surgical History Surgery Date Site/Laterality Comments SECTION [...] of 3 - 19+ 3-dose series) 06/25/2002 Cervical Cancer Screening: P ap Smear 06/25/2004 HPV Vaccines (1 - 3-dose SCD M series) 06/25/2010 DTaP,Tdap,and Td Vaccines (2 - Td or Tdap) 05/20/2022 05/20/2012 Depression Screening 03/17/2024 COVID-19 Vaccine (1 - 2023-2 5 season) 2024 Influenza Vaccine (#1) 2024 3, 02/13/2009 RSV Immunization Adult Patients (1 - 1-dose 75+ series) 06/25/2058 HIB [...] 5 Years) and At-Risk Patients (6 to 49 Years) Aged Out No longer eligible b ased on patient's age to complete this topic RSV Immunization Patients Under 20 months Aged Out No longer eligible b ased on patient's age to complete this topic Varicella Vaccines Aged Out No longer eligible based on patient's age to complete this topic Care Teams Pig Casting Machine Operator Relationship Specialty Start Date End Date Kate Morales MD [address] [place] [address] PCP - General Internal Medicine 05/01/15
--- OUTSIDE RECORDS SUMMARY | 2024-12-15 15:14 | XMS_ITS | Encounter Summary ---
Author Organization [employer] Address [address] [facility] [address] [place] [address] Care Team Providers Care Global Implementation Manager Name Role Phone Unavailable Primary Care Provider Unavailabl e Encounter Details Date Type Department Care Team (Latest Contact Info) Description 07/30/2021 Abstract HHC CONVERSIONS Dental, Provider, DDS Social History Tobacco [...]
== END 2024-12-15 15:37 | disposition home or self-care (01) ==
LOC: HO.HMCC 14:02
PROVIDERS: PCP Nurse Practitioner Family; Visit Provider Nurse Practitioner Family
DX: Z00.00 Encounter for general adult medical examination without abnormal findings (principal); R79.89 Other specified abnormal findings of blood chemistry

== ENCOUNTER → 2024-12-15 14:02 | Outpatient (BNVA) | payer OTHER, SELFPAY | PROVIDERS: PCP Nurse Practitioner Family; Visit Provider Nurse Practitioner Family | DX: Z00.00 Encounter for general adult medical examination without abnormal findings (principal); E03.9 Hypothyroidism, unspecified; R79.89 Other specified abnormal findings of blood chemistry | CPT/HCPCS: 96127; 99396 ==